=== PATIENT | female | born 1970 | race Caucasian/White ===

== ENCOUNTER 2020-12-14 17:34 | Emergency (ER) | payer OTHER, SELFPAY ==
[2020-12-14 17:40] VITALS: BP 183/87; PULSE 63; RESP 16; TEMP 36.9; O2SAT 100
--- NOTE | 2020-12-14 18:10 | ED.SKABFB ---
HPI - Skin/Abscess/Foreign Bdy General Chief complaint: Skin/Abscess/Foreign Body Stated complaint: wound on thigh Time Seen by Provider: 12/14/20 18:10 Source: patient and RN notes reviewed Mode of arrival: ambulatory Limitations: no limitations History of Present Illness HPI narrative: Janet is a 50-year-old female patient who ambulated into the [facility]. Patient states she was bit on Sunday on her left leg. Patient states it was a piercing pain and she has had bruising to the area ever since. Patient has been treating with cold compresses at home. MD complaint: insect bite/sting Related Data Home Medications Medication Instructions Recorded Confirmed eletriptan 40 mg tablet See Rx Instructions PO .COMPLEX 09/22/19 09/06/20 propranolol 120 mg capsule,24 120 mg PO DAILY 09/06/20 09/06/20 hr,extended release fexofenadine 180 mg tablet 180 mg PO DAILY 12/01/20 riboflavin (vitamin B2) 100 mg mg PO 12/01/20 capsule,extended release rimegepant 75 mg disintegrating 75 mg PO .qod tablet 12/01/20 tablet Allergies Allergy/AdvReac Type Severity Reaction Status Date / Time aspirin Allergy Severe Swelling Verified 12/01/20 11:51 shellfish derived Allergy Severe Unknown Verified 12/01/20 11:51 nut - unspecified Allergy Unknown Verified 12/14/20 18:00 Review of Systems Review of Systems: CONSTITUTIONAL: Denies body aches, fever, chills, or sweats. EYES: Denies visual changes, redness, or discharge. ENT: Denies rhinorrhea, congestion, sore throat, or otalgia. CARDIOVASCULAR: Denies chest pain, palpitations, or edema. RESPIRATORY: Denies cough or dyspnea. GASTROINTESTINAL: Denies abdominal pain, nausea, vomiting, or diarrhea. GENITOURINARY: Denies dysuria or hematuria. SKIN: Denies rash, itching, + bite left leg MUSCULOSKELETAL: Denies back pain, joint pain, or myalgia. NEUROLOGIC: Denies headache, numbness, tingling, or weakness. PSYCH: Denies depression or anxiety. All systems reviewed & are unremarkable except as noted in HPI and below PMFSH Past Medical History Medical History Migraine headache Family History Family History Mother Hypertension Father Patient's father is in good health Sibling Patient's sister is in good health Social History Social History Smoking status: Never smoker Second hand tobacco smoke exposure: No Alcohol intake: current Drinks per week: 5 Substance use: current Substance use type: marijuana Other substance usage details: edibles; once monthly Comments At time of signature, I have reviewed and agree with nursing past medical, surgical, social and family history unless otherwise noted. Please see nursing chart for further information. There is no relevant family history pertinent to the presenting complaint Exam Narrative: GENERAL: Well-appearing, well-nourished, and in no acute distress. HEAD: Normocephalic, atraumatic. EYES: EOMI. No redness or drainage. Conjunctivae normal. ENT: Mucous membranes pink and moist. Nares clear. No rhinorrhea. TMs normal bilaterally. Throat normal. Uvula midline. NECK: Normal AROM. Supple. No lymphadenopathy. CHEST: No respiratory distress. Clear to auscultation. HEART: Regular rate and rhythm. No murmur appreciated. Normal peripheral pulses. ABDOMEN: Soft, nontender, nondistended, normal active bowel sounds. MUSCULOSKELETAL: No bony tenderness. EXTREMITIES: Normal range of motion. No edema. SKIN: Warm, dry, no rash. Capillary refill normal. Normal skin turgor. 6 x 7cm erythemic bruised area, warm, intact skin without drainage; NEURO: No focal deficits. Alert and oriented x3. Gait steady. PSYCH: Normal affect. No signs of depression or anxiety. Course Vital Signs Vital signs: Vital Signs Temperature 36.9 C 12/14/20 17:40 P
[2020-12-14] MEDS: TETANUS,DIPHTHERIA,AC PERTUSSIS ADULT (0.5 ML) BOOSTRIX IM (18:32)
== END 2020-12-14 18:55 | disposition home or self-care (01) ==
PROVIDERS: Emergency Provider Nurse Practitioner Family; PCP Family Medicine
DX: S70.362A Insect bite (nonvenomous), left thigh, initial encounter (principal); L03.116 Cellulitis of left lower limb; W57.XXXA Bitten or stung by nonvenomous insect and other nonvenomous arthropods, initial encounter; Z23 Encounter for immunization
CPT/HCPCS: 90471; 90715; 99213; G0463

== ENCOUNTER 2021-11-11 21:29 | Emergency (ER) | payer OTHER, SELFPAY ==
[2021-11-11] VITALS (17 sets, daily range): BP systolic 135–214; BP diastolic 75–112; PULSE 72–89; RESP 13–28; TEMP 36.7; O2SAT 98–100
--- NOTE | ~2021-11-11 | XR_ITS ---
EXAMINATION: XR chest 2V 11/11/2021 22:31 INDICATION: Chest pain PROCEDURE: 2 view chest COMPARISON: 04/16/2013 FINDINGS: The lungs are clear. The cardiomediastinal silhouette is within normal limits. There are no pleural effusions. There is no pneumothorax suspected. IMPRESSION: 1: NO ACUTE CARDIOPULMONARY DISEASE. Reviewed, dictated and finalized at location A.
--- NOTE | 2021-11-11 21:41 | ECG_ITS ---
Measurements Intervals [place] Rate: 78 P: 36 CO: 135 QRS: 80 QRSD: 77 T: 45 QT: 372 QTc: 425 Interpretive Statements SINUS RHYTHM NORMAL ECG NO PREVIOUS ECG AVAILABLE FOR COMPARISON Electronically Signed On 11-12-2021 7:53:52 CDT by Martin Butler M.D.
[2021-11-11] MEDS: cloNIDine HCL 0.1 MG TABLET 0.2 MG PO (21:59)
[2021-11-11 22:01] LABS: Basophils Absolute Auto 0.1 K/mm3 (0.0-0.1); Basophils Percent Auto 0.6 % (0.2-1.2); Eosinophils Absolute Auto 0.2 K/mm3 (0-0.3); Eosinophils Percent Auto 2.8 % (0-4.4); Hematocrit 36.9 % (37.0-47.0); Hemoglobin 12.4 g/dL (12.0-15.0); Immature Granulocyte Absolute 0.01 K/mm3 (0.00-0.031); Immature Granulocyte Percent A 0.1 % (0-0.5); Lymphocytes Absolute Auto 3.47 K/mm3 (0.9-3.2); Lymphocytes Percent Auto 44.2 % (18.3-44.2); Mean Corpuscular HGB Conc 33.6 g/dl (32-36); Mean Corpuscular Hemoglobin 29.2 pg (26-34); Mean Corpuscular Volume 86.8 fl (80-100); Mean Platelet Volume 9.6 fl (7.4-10.4); Monocytes Absolute Auto 0.7 K/mm3 (0.1-0.6); Monocytes Percent Auto 8.5 % (2.6-8.5); Neutrophils Absolute Auto 3.4 K/mm3 (1.3-6.7); Neutrophils Percent Auto 43.8 % (45.5-73.1); Platelet Count Result 316 k/mm3 (150-375); Red Blood Count 4.25 M/mm3 (4.2-5.4); Red Cell Distribution Width 12.2 % (11.5-14.5); White Blood Count 7.9 K/mm3 (4.5-10.0)
[2021-11-11 22:10] LABS: Prothrombin Time 12.9 Seconds (11.1-14.7)
[2021-11-11 22:11] LABS: Partial Thromboplastin Time 30.6 SECONDS (22.3-36.8)
[2021-11-11 22:24] LABS: Alanine Aminotransferase 15 U/L (6-35); Albumin Level 3.7 g/dL (3.5-5.1); Alkaline Phosphatase 64 U/L (38-126); Anion Gap 8 mmol/L (8-16); Aspartate Amino Transferase 17 U/L (14-36); Bilirubin,Total 0.5 mg/dL (0.2-1.3); Blood Urea Nitrogen 13 mg/dL (7-17); Calcium 8.6 mg/dL (8.4-10.2); Carbon Dioxide 23 mmol/L (22-30); Chloride 106 mmol/L (98-107); Estimated CRCL calculation 73 ml/min; Estimated Glomerular Filt Rate > 60; Glucose 106 mg/dL (65-110); Lipase 147 U/L (23-300); Potassium 3.5 mmol/L (3.4-5.0); Sodium 137 mmol/L (137-145)
[2021-11-11 22:32] LABS: Troponin I < 0.012 ng/mL (0.000-0.034)
[2021-11-11] MEDS: MORPHINE SULFATE (*CRX) 4 MG/ML INJ IV PUSH (23:26)
[2021-11-11] MEDS: ONDANSETRON INJ 4 MG/2 ML VIAL IV PUSH (23:26)
[2021-11-12] VITALS: PULSE 70; RESP 14; O2SAT 100
--- NOTE | 2021-11-12 | ED.CHESTPAIN ---
HPI - Chest Pain General Chief Complaint: Chest Pain Stated Complaint: high blood pressure with migraine Time Seen by Provider: 11/11/21 21:49 Source: patient and family Mode of arrival: wheelchair Limitations: no limitations History of Present Illness HPI narrative: 51-year-old with a history of migraines, hypertension here with complaints of having headache and chest pain. Patient states that she has been dealing with migraine headaches for past 1 week. She states that she has seen her primary doctor did receive an injection in the office which helped her with the pain and she states that pain started all over again this afternoon and now has chest pain as well. She states that she was started on labetalol for high blood pressure and she took 1 dose this evening. She denies any shortness of breath. No history of fever or chills. MD complaint: chest pain Onset (ago): day(s) Pain location: posterior Pain radiation: none Quality: aching Relieving factors: nothing Treatment prior to arrival: none Risk Factors Coronary artery disease risk factors: none Thoracic aortic dissection risk factors: none Related Data Home Medications Medication Instructions Recorded Confirmed eletriptan 40 mg tablet (Relpax) See Rx Instructions PO .COMPLEX 09/22/19 11/09/21 fexofenadine 180 mg tablet 180 mg PO DAILY 12/01/20 11/09/21 (Lorena Allergy) riboflavin (vitamin B2) 100 mg mg PO 12/01/20 11/09/21 capsule,extended release Allergies Allergy/AdvReac Type Severity Reaction Status Date / Time aspirin Allergy Severe Swelling Verified 11/09/21 14:55 shellfish derived Allergy Severe Unknown Verified 11/09/21 14:55 nut - unspecified Allergy Unknown Verified 11/09/21 14:55 Review of Systems Review of Systems: All systems reviewed & are unremarkable except as noted in HPI and below Constitutional: Constitutional: Reports no additional constitutional complaints Eyes: Eyes: Reports no additional eye complaints ENT: Reports system reviewed and no additional complaints, except as documented Cardiovascular: Cardiovascular: Reports as per HPI Respiratory: Respiratory: Reports no additional respiratory complaints Gastrointestinal: Gastrointestinal: Reports no additional gastrointestinal complaints Musculoskeletal: Musculoskeletal: Reports no additional musculoskeletal complaints Neurologic: Reports system reviewed and no additional complaints, except as documented [facility] Past Medical History Medical History Migraine headache Family History Family History Mother Hypertension Father Patient's father is in good health Sibling Patient's sister is in good health Social History Social History (Updated 11/09/21 @ 14:58 by Sandra Fitzpatrick [facility]) Smoking status: Never smoker Second hand tobacco smoke exposure: No Alcohol intake: former Substance use: never Gender identity (if verbalized by the patient): Female Spiritual care concerns: No Agree to blood products: Yes Exam Narrative: GENERAL: Well-appearing, well-nourished, and in no acute distress, anxious HEAD: Normocephalic, atraumatic. EYES: PERRLA and EOM. NECK: Supple. CHEST: Clear to auscultation. No respiratory distress. HEART: Regular rate and rhythm. No murmur heard. Normal peripheral pulses. ABDOMEN: Soft, nontender, nondistended, normal active bowel sounds. EXTREMITIES: Normal range of motion. No edema. SKIN: Warm, dry, no rash. NEURO: No focal deficits. Alert and oriented x3. PSYCH: Normal mood and affect. Course Course Emergency Course: Patient on examination appeared to be anxious and her blood pressure was 214/112, her EKG was unremarkable we will give her clonidine 0.2 mg p.o. and do cardiac work-up. Informed patient about her lab work, EKG and chest x-ray findings. She is feeling much better her present b
[2021-11-12 00:01] VITALS: BP 119/75; PULSE 76; RESP 15; O2SAT 100
[2021-11-12 00:23] VITALS: BP 107/73; PULSE 73; RESP 16; O2SAT 100
== END 2021-11-12 00:23 | disposition home or self-care (01) ==
PROVIDERS: General Practice; Emergency Provider Family Medicine; PCP Family Medicine
DX: G43.909 Migraine, unspecified, not intractable, without status migrainosus (principal); I10 Essential (primary) hypertension; R07.89 Other chest pain
CPT/HCPCS: 36415; 71046; 80053; 83690; 84484; 85025; 85610; 85730; 93005; 96374; 96375; 99284; A9270; J2270; J2405

== ENCOUNTER 2022-03-09 08:17 | Outpatient (CLI) | payer OTHER, SELFPAY ==
--- NOTE | 2022-03-09 08:21 | EST_ITS ---
Patient Info Name: Little Miramontes Age: 52 years : 1970 Gender: Female Ht: 61 in Wt: 150 lbs BSA: 1.73 m2 HR: 69 bpm BP: 153 / 94 mmHg Heart Rhythm: Sinus Rhythm Exam Date: 03/09/2022 9:43 AM Exam Location: [facility] Stress Patient Status: Outpatient Admit Date: 03/09/2022 Staff Ordering Physician: More Betancourt MD Attending Provider: More Betancourt MD Exercise Technologist: Nelida Ellison CT Exercise Physician: Omar Rodas DO Exam Type: CA stress test treadmill Study Info Indications I10 - Essential (primary) hypertension R07.9 - Chest pain, unspecified A treadmill exercise stress test was performed. Summary 1. 1. Negative Ankur exercise stress test for ischemic ST changes by ECG criteria. 2. 2. Good functional capacity, achieving 12 METs of workload. 3. 3. Baseline hypertension. 4. 4. Appropriate HR response to exercise. 5. 5. Appropriate HR recovery at 1 minute post exercise. 6. 6. No imaging with stress testing. 7. 7. Patient informed of the above results. Protocol: Ankur Stress ECG Details Stage: REST Duration (min): 0 min : 59 sec Speed (mph): 0.0 Grade (%): 0 HR (bpm): 71 SBP (mmHg): 153 DBP (mmHg): 94 METS: --- Stage: REST Duration (min): 17 min : 5 sec Speed (mph): 0.0 Grade (%): 0 HR (bpm): 70 SBP (mmHg): 153 DBP (mmHg): 94 METS: --- Stage: STAGE 1 Duration (min): 1 min : 0 sec Speed (mph): 1.7 Grade (%): 10 HR (bpm): 100 SBP (mmHg): 153 DBP (mmHg): 94 METS: --- Stage: STAGE 1 Duration (min): 2 min : 0 sec Speed (mph): 1.7 Grade (%): 10 HR (bpm): 108 SBP (mmHg): 153 DBP (mmHg): 94 METS: --- Stage: STAGE 1 Duration (min): 3 min : 0 sec Speed (mph): 1.7 Grade (%): 10 HR (bpm): 108 SBP (mmHg): 146 DBP (mmHg): 82 METS: --- Stage: STAGE 2 Duration (min): 1 min : 0 sec Speed (mph): 2.5 Grade (%): 12 HR (bpm): 118 SBP (mmHg): 146 DBP (mmHg): 82 METS: --- Stage: STAGE 2 Duration (min): 2 min : 0 sec Speed (mph): 2.5 Grade (%): 12 HR (bpm): 121 SBP (mmHg): 118 DBP (mmHg): 78 METS: --- Stage: STAGE 2 Duration (min): 3 min : 0 sec Speed (mph): 2.5 Grade (%): 12 HR (bpm): 124 SBP (mmHg): 118 DBP (mmHg): 78 METS: --- Stage: STAGE 3 Duration (min): 1 min : 0 sec Speed (mph): 3.4 Grade (%): 14 HR (bpm): 134 SBP (mmHg): 220 DBP (mmHg): 88 METS: --- Stage: STAGE 3 Duration (min): 2 min : 0 sec Speed (mph): 3.4 Grade (%): 14 HR (bpm): 147 SBP (mmHg): 220 DBP (mmHg): 88 METS: --- Stage: STAGE 3 Duration (min): 3 min : 0 sec Speed (mph): 3.4 Grade (%): 14 HR (bpm): 151 SBP (mmHg): 220 DBP (mmHg): 88 METS: --- Stage: STAGE 4 Duration (min): 1 min : 0 sec Speed (mph): 4.2 Grade (%): 16 HR (bpm): 166 SBP (mmHg):
--- NOTE | 2022-03-09 08:21 | ECHO_ITS ---
Patient Info Name: Little Miramontes Age: 52 years : 1970 Gender: Female Ht: 61 in Wt: 150 lbs BSA: 1.73 m2 HR: 68 bpm BP: 141 / 93 mmHg Technical Quality: Good Exam Date: 03/09/2022 8:31 AM Exam Location: [facility] Patient Status: Outpatient Admit Date: 03/09/2022 Staff Ordering Physician: More Betancourt MD Cold Storage Superintendent: Nandini Alexander RDCS Attending Provider: More Betancourt MD Referring Physician: Serafin FLORES; Exam Type: CA echo doppler color flow Study Info Indications R07.89 - Other chest pain Complete two-dimensional, color flow and Doppler transthoracic echocardiogram is performed. Summary 1. Complete two-dimensional, color flow and Doppler transthoracic echocardiogram is performed. 2. Left ventricular chamber dimension is normal. 3. Left ventricular systolic function is normal, estimated at 65-70%. 4. The left ventricular diastolic function is normal. 5. E/e' 8 is minimally elevated. 6. Global longitudinal strain is normal at -19.4%. 7. There is trace mitral valve regurgitation. 8. There is trace tricuspid valve regurgitation. 9. No pulmonary hypertension, estimated pulmonary arterial systolic pressure is 26 mmHg. Left Ventricle E/e' 8 is minimally elevated. Global longitudinal strain is normal at -19.4%. Left ventricular chamber dimension is normal. Left ventricular systolic function is normal, estimated at 65-70%. The left ventricular diastolic function is normal. Right Ventricle Right ventricular systolic function is normal and with normal TAPSE 2.6 cm. Right ventricular chamber dimension is normal. Left Atria Left atrial chamber dimension is normal. Right Atria Right atrial chamber dimension is normal. Aortic Valve The aortic valve is trileaflet. There is no aortic valve stenosis. There is no aortic valve regurgitation. Pulmonic Valve There is no pulmonic regurgitation. Mitral Valve There is no mitral valve stenosis. There is trace mitral valve regurgitation. Tricuspid Valve There is trace tricuspid valve regurgitation. No pulmonary hypertension, estimated pulmonary arterial systolic pressure is 26 mmHg. Pericardium/Pleural There is no pericardial effusion. Inferior Vena Cava Normal inferior vena cava with >50% collapse upon inspiration consistent with normal right atrial pressure, 5 mmHg. Aorta The aortic root size at the sinus of Valsalva is normal. Left Ventricular Outflow Tract Name Value Normal LVOT 2D LVOT Diameter 2.0 cm LVOT Doppler LVOT Peak Gradient 5 mmHg LVOT Mean Gradient 3 mmHg LVOT VTI 25 cm LVOT VTI/AV VTI Ratio 0.9 LVOT Stroke Volume 76 ml LVOT CO 4.8 l/min LVOT CI 2.8 l/min/m2 Pulmonic Valve Name Value Normal RVOT Doppler
== END 2022-03-09 08:18 | disposition home or self-care (01) ==
PROVIDERS: PCP Family Medicine; Visit Provider Family Medicine
DX: R07.89 Other chest pain (principal); I10 Essential (primary) hypertension; Z86.79 Personal history of other diseases of the circulatory system
CPT/HCPCS: 93017; 93306

== ENCOUNTER 2022-06-30 08:44 | Outpatient (CLI) | payer OTHER, SELFPAY ==
--- NOTE | ~2022-06-30 | MMUS_ITS ---
EXAMINATION: MM diagnostic jcarlos BI w neymar, US breast BI limited HISTORY: Palpable lump of the upper left breast TECHNIQUE: Craniocaudal, mediolateral, and mediolateral oblique 3-D tomosynthesis images of the coy ts were performed and synthetic 2-D images were generated. CAD analysis was submitted and interpreted . High resolution limited bilateral breast ultrasound was performed. COMPARISON: No prior mammogram is currently available for comparison. BREAST PARENCHYMAL COMPOSITION: The breasts are heterogeneously dense, which may obscure small masses . FINDINGS: MAMMOGRAPHIC FINDINGS: Right breast: There is a 1.8 cm oval, obscured, equal density mass in the middle third of the slightl y upper breast at the 12:00 location 5 cm from the nipple. No suspicious calcification or architectur al distortion are identified. Left breast: There is a 1.8 cm oval, obscured, equal density mass in the middle third of the upper br east at the 12:00 location 4.5 cm from the nipple corresponding to the palpable abnormality. ULTRASOUND: Right breast: There is a 2.1 cm cyst corresponding to the mammographic finding in question. There is a 9 mm x 4 mm oval, circumscribed, parallel, hypoechoic mass with no posterior features or internal v ascularity at the 12:00 location near the nipple. Left breast: There is a 1.8 cm cyst corresponding to the mammographic finding in question. No suspici ous cystic or solid mass is identified. IMPRESSION: 1. Probably benign sonographically detected right breast mass near the nipple at the 12:00 location. Recommend six month follow-up targeted right breast ultrasound. 2. Bilateral breast cysts, one of which corresponds to the palpable lump of the left breast. BI-RADS category 3, probably benign findings. Reviewed, dictated and finalized at location A. IMPRESSION: 1. Probably benign sonographically detected right breast mass near the nipple a t the 12:00 location. Recommend six month follow-up targeted right breast ultra sound. 2. Bilateral breast cysts, one of which corresponds to the palpable lump of the left breast. BI-RADS category 3, probably benign findings.
== END 2022-06-30 08:45 | disposition home or self-care (01) ==
LOC: CHSIMG 08:46
PROVIDERS: PCP Family Medicine; Visit Provider Obstetrics & Gynecology
DX: R92.8 Other abnormal and inconclusive findings on diagnostic imaging of breast (principal)
CPT/HCPCS: 76642; 77062; 77066; G0279

== ENCOUNTER 2022-09-15 07:35 | Day surgery (SDC) | payer OTHER, SELFPAY ==
[2022-09-15] VITALS (35 sets, daily range): BP systolic 108–161; BP diastolic 68–102; PULSE 57–100; RESP 13–29; TEMP 36.1–36.4; O2SAT 90–100
--- NOTE | ~2022-09-15 | CT_ITS ---
EXAMINATION: CT abdomen pelvis w con DATE: 09/15/2022 08:41 INDICATION: Right upper quadrant abdominal pain. Nausea. TECHNIQUE: Computed tomography (CT) of the abdomen and pelvis was performed with 100 mL Omnipaque 350 intravenous contrast. Automated exposure control and iterative reconstruction technique were employe d. The dose-length product was 365.43 mGy-cm. COMPARISON: Breast ultrasound 06/30/2022 FINDINGS: The visualized portions of the lung bases are clear without pneumonia or pleural effusion. The heart size is normal. No pericardial effusion. There is a 17 mm cyst in right breast. There is a 3.6 cm cyst in the liver. There are gallstones in the gallbladder, which is distended. The spleen, pa ncreas, adrenal glands, and kidneys are normal. There are no dilated loops of bowel. There is an 11 m m uterine fibroid. The endometrial complex is thickened at 3.2 cm. There are no dilated loops of lissa l. The appendix is normal. There are no pathologically enlarged lymph nodes. There is no ascites. There is mild lumbar spondylosis. IMPRESSION: 1. Distended gallbladder with gallstones suspicious for acute cholecystitis. 2. Thickened endometrial complex suspicious for endometrial hyperplasia or polyp. Reviewed, dictated and finalized at location A. IMPRESSION: 1. Distended gallbladder with gallstones suspicious for acute cholecystitis. 2. Thickened endometrial complex suspicious for endometrial hyperplasia or devante yp.
--- NOTE | ~2022-09-15 | US_ITS ---
EXAMINATION: US right upper quadrant DATE: 09/15/2022 09:24 INDICATION: Right upper quadrant abdominal pain. TECHNIQUE: Multiple grayscale and Doppler ultrasound images of the abdomen were obtained. COMPARISON: CT abdomen and pelvis 09/15/2022 FINDINGS: The visualized portions of the head of the pancreas are normal. There is a 3.6 cm cyst in t he liver. No liver surface nodularity. There is normal flow in main portal vein. The gallbladder is d istended and contains gallstones. Gallbladder wall thickening is noted. There is a positive sonograph ic Wilcox sign. The common duct is normal and measures 3 mm. IMPRESSION: 1. Acute cholecystitis. Reviewed, dictated and finalized at location A. IMPRESSION: 1. Acute cholecystitis.
--- NOTE | 2022-09-15 07:48 | ED.ABDPAIN ---
HPI - Abdominal Pain General Chief Complaint: Abdominal Pain Stated Complaint: abd pain Time Seen by Provider: 09/15/22 07:42 History of Present Illness HPI narrative: This is a 52-year-old female, with past history of hypertension, who presents to the emergency department complaining of abdominal pain. The patient states her pain began approximately 5 hours. It is described as sharp, present in the epigastrium and the right upper quadrant radiating towards the back. She denies recent trauma or other injuries. She complains of some associated fevers and chills. She also complains of nausea and has vomited once without blood. Related Data Home Medications Medication Instructions Recorded Confirmed fexofenadine 60 mg-pseudoephedrine 1 tablet PO Q12H 06/22/22 09/15/22 ER 120 mg tablet,ext.release,12 hr (Lorena-D 12 Hour) mecobalamin (vitamin B12) 1,000 1,000 mcg PO DAILY 06/22/22 09/15/22 mcg lozenges norethindrone (contraceptive) 0.35 0.35 mg PO DAILY 07/24/22 09/15/22 mg tablet (Jessica) fluticasone furoate 50 50 mcg inhalation BID 09/15/22 09/15/22 mcg/actuation blister powder for inhalation Allergies Allergy/AdvReac Type Severity Reaction Status Date / Time aspirin Allergy Severe Swelling Verified 09/15/22 13:15 Review of Systems Review of Systems: CONSTITUTIONAL: Denies fever, chills, or sweats. CARDIOVASCULAR: Denies chest pain, palpitations, or edema. RESPIRATORY: Denies cough or dyspnea. GASTROINTESTINAL: Epigastric and right upper quadrant abdominal pain, nausea and vomiting, able to pass gas denies diarrhea. GENITOURINARY: Denies dysuria or hematuria. SKIN: Denies rash or itching. MUSCULOSKELETAL: Denies back pain, joint pain, or myalgia. NEUROLOGIC: Denies headache, numbness, dizziness, or weakness. PSYCHIATRIC: Denies anxiety or depression. [facility] Past Medical History Medical History Allergies Essential hypertension H/O mitral valve prolapse Migraine headache Surgical History Surgical History S/P nasal surgery [place] teeth removed Family History Family History Mother Hypertension Father Patient's father is in good health Alcoholism Sibling Patient's sister is in good health Asthma Other Liver cancer Social History Social History Smoking status: Never smoker Second hand tobacco smoke exposure: No Alcohol intake: current Substance use: current Lack of Transportation: No Lack of Food: Never True Current Housing: I Have Housing Concerned About Future Housing: No Difficulty Paying Gas/Electric Bills: No Difficulty Paying for Meds: No Currently Unemployed: No Education: Master's Degree or Higher Difficulty w/ Childcare or Family Care: No Living arrangements: with family Gender identity (if verbalized by the patient): Female Spiritual care concerns: No Agree to blood products: Yes Exam Narrative: GENERAL: Well-developed, well-nourished, in moderate distress due to pain HEAD: Normocephalic, atraumatic. EYES: PERRLA and EOMI. ENT: Nares clear, no rhinorrhea or epistaxis. Mucous membranes moist. Oropharynx without tonsillar hypertrophy exudate or other lesions. CHEST: Clear to auscultation. No respiratory distress. No wheezes rales or rhonchi HEART: Regular rate and rhythm. No murmur heard. Normal peripheral pulses. ABDOMEN: Soft, tender to palpation in the epigastrium and right upper quadrant without rebound though possibly guarding, nondistended, normal active bowel sounds. EXTREMITIES: Normal range of motion. No edema. SKIN: Warm, dry, no rash. NEURO: No focal deficits. Alert and oriented x3. PSYCH: Normal mood and affect. Course Course Emergency Course: 10:50 - CT abdomen pelv
[2022-09-15] MEDS: MORPHINE SULFATE (*CRX) 4 MG/ML INJ IV PUSH ×2 (07:59→09:59)
[2022-09-15] MEDS: ONDANSETRON INJ 4 MG/2 ML VIAL IV PUSH ×2 (07:59→15:56)
[2022-09-15] MEDS: SODIUM CHLORIDE 0.9% IV 2,000 ML 999 ML IV CONT (07:59)
[2022-09-15 08:06] LABS: Basophils Percent Auto 0.7 % (0.2-1.2); Eosinophils Absolute Auto 0.1 K/mm3 (0-0.3); Eosinophils Percent Auto 1.3 % (0-4.4); Hematocrit 40.8 % (37.0-47.0); Hemoglobin 14.3 g/dL (12.0-15.0); Immature Granulocyte Absolute 0.03 K/mm3 (0.00-0.031); Immature Granulocyte Percent A 0.5 % (0-0.5); Lymphocytes Absolute Auto 2.62 K/mm3 (0.9-3.2); Lymphocytes Percent Auto 43.2 % (18.3-44.2); Mean Corpuscular Hemoglobin 29.3 pg (26-34); Mean Corpuscular Volume 83.6 fl (80-100); Mean Platelet Volume 9.4 fl (7.4-10.4); Monocytes Absolute Auto 0.5 K/mm3 (0.1-0.6); Monocytes Percent Auto 8.2 % (2.6-8.5); Neutrophils Absolute Auto 2.8 K/mm3 (1.3-6.7); Neutrophils Percent Auto 46.1 % (45.5-73.1); Platelet Count Result 364 k/mm3 (150-375); Red Blood Count 4.88 M/mm3 (4.2-5.4); Red Cell Distribution Width 12.2 % (11.5-14.5); White Blood Count 6.1 K/mm3 (4.5-10.0)
[2022-09-15 08:22] LABS: Alanine Aminotransferase 27 U/L (6-35); Albumin Level 4.8 g/dL (3.5-5.1); Alkaline Phosphatase 94 U/L (38-126); Anion Gap 10 mmol/L (8-16); Aspartate Amino Transferase 26 U/L (14-36); Bilirubin,Total 1.5 mg/dL (0.2-1.3); Blood Urea Nitrogen 14 mg/dL (7-17); Calcium 9.9 mg/dL (8.4-10.2); Carbon Dioxide 23 mmol/L (22-30); Chloride 104 mmol/L (98-107); Estimated CRCL calculation 65 ml/min; Estimated Glomerular Filt Rate > 60; Glucose 123 mg/dL (65-110); Lactic Acid Reflex 1.9 mmol/L (0.7-2.0); Lipase 96 U/L (23-300); Potassium 3.1 mmol/L (3.4-5.0); Sodium 137 mmol/L (137-145)
[2022-09-15 08:54] LABS: Amorphous Sediment Urine Present; Appearance Urine Cloudy (Clear); Bacteria Urine None Seen /hpf; Bilirubin Urine Negative (Negative); Blood Urine Negative (Negative); Color Urine Yellow (Yellow); Glucose Urine UA Negative (Negative); Ketones Urine 1+ mg/dL (Negative); Leukocyte Esterase Ur 1+ LEU/UL (Negative); Need Manual Microscopic Reviewed; Nitrate Urine Negative (Negative); Non Pathogenic Casts 0-2; Protein Urine Negative (Negative); RBC Urine 0-2 /hpf (0-2); Specific Grav Ur 1.018 (1.001-1.035); Squamous Epithelial Cell Urine None seen /hpf (Few); WBC Urine 0-5 /hpf
[2022-09-15 09:02] LABS: Add Urine Microscopic? YES
[2022-09-15] MEDS: PIPERACILLN/TAZ 3.375GM/NS50ML 3.375 GM/50 ML BAG IVPB (10:00)
--- NOTE | 2022-09-15 10:37 | PM.IMHP ---
H&P: HPI History of Present Illness Date/Time: 09/15/22 10:37 Chief Complaint: Acute cholecystitis Narrative: The patient is a 52-year-old female presenting to the emergency department complaining of severe upper abdominal pain. The patient reports the pain is mostly in her epigastrium and right upper quadrant radiating to her back. The patient reports that the pain started last night and has been unrelenting. The patient reports that she had fried chicken for dinner and pain started soon afterwards. The patient reports associated nausea, anorexia, bloating. The patient reports she has had similar episodes over the last year, however nothing this severe or long-lasting. The patient reports that the pain seems to be brought on by fried, fatty foods. Review of Systems Review of Systems: All systems reviewed & are unremarkable except as noted in HPI and below PMFSH Past Medical History Medical History Allergies Essential hypertension H/O mitral valve prolapse Migraine headache Surgical History Surgical History S/P nasal surgery [place] teeth removed Family History Family History Mother Hypertension Father Patient's father is in good health Alcoholism Sibling Patient's sister is in good health Asthma Other Liver cancer Social History Social History Smoking status: Never smoker Second hand tobacco smoke exposure: No Alcohol intake: current Substance use: current Lack of Transportation: No Lack of Food: Never True Current Housing: I Have Housing Concerned About Future Housing: No Difficulty Paying Gas/Electric Bills: No Difficulty Paying for Meds: No Currently Unemployed: No Education: Master's Degree or Higher Difficulty w/ Childcare or Family Care: No Living arrangements: with family Gender identity (if verbalized by the patient): Female Spiritual care concerns: No Agree to blood products: Yes Meds Home Medications and Allergies Home Medications Medication Instructions Recorded Confirmed Type eletriptan 40 mg tablet (Relpax) See Rx Instructions PO .COMPLEX 12/23/21 07/24/22 Rx #90 tabs azelastine 137 mcg-fluticasone 50 spray intranasal 06/22/22 07/24/22 History mcg spray,susp-NaCl 0.9% spray nasal fexofenadine 60 mg-pseudoephedrine 1 tablet PO Q12H PRN 06/22/22 07/24/22 History ER 120 mg tablet,ext.release,12 hr (Lorena-D 12 Hour) mecobalamin (vitamin B12) 1,000 1,000 mcg PO DAILY 06/22/22 07/24/22 History mcg lozenges labetalol 100 mg tablet See Rx Instructions .Route 06/30/22 07/24/22 Rx .COMPLEX #180 tabs amlodipine 5 mg tablet 5 mg PO DAILY #90 tabs 07/24/22 Rx buspirone 7.5 mg tablet 7.5 mg PO BID #30 tabs 07/24/22 07/24/22 Rx hydrochlorothiazide 50 mg tablet 50 mg PO DAILY #90 tabs 07/24/22 07/24/22 Rx norethindrone (contraceptive) 0.35 0.35 mg PO DAILY 07/24/22 07/24/22 History mg tablet (Jessica) pantoprazole 40 mg tablet,delayed 40 mg PO QHS #90 tabs 07/24/22 07/24/22 Rx release potassium chloride 10 mEq See Rx Instructions .Route 07/24/22 07/24/22 Rx capsule,extended release .COMPLEX #90 caps Allergies Allergy/AdvReac Type Severity Reaction Status Date / Time aspirin Allergy Severe Swelling Verified 07/24/22 09:25 shellfish derived Allergy Severe Unknown Verified 07/24/22 09:25 nut - unspecified Allergy Unknown Verified 07/24/22 09:25 Vital Signs Vital Signs - 24 hr 09/15/22 07:43 Temperature 36.4 C L Pulse Rate 69 Respiratory Rate 28 H Blood Pressure 158/90 H Pulse Oximetry 100 Oxygen Delivery Room Air Exam Const: General: cooperative, alert, awake, Physically active, acute distress mild, uncomfortable and average body habitus HENMT: Head: normal to inspection, No p
--- NOTE | 2022-09-15 10:41 | WPDHPUPDATE1 ---
History and Physical Update Update Date/Time: 09/15/22 10:41 History and Physical has been reviewed, including an updated exam of the patient. There are NO changes in the patient's condition. Risks, benefits, and alternatives have been discussed and questions answered. Patient agrees to proceed with procedure.
[2022-09-15] MEDS: HYDROmorphone HCL INJ (*CRX) 1 MG/ML SYR IV PUSH (12:11)
--- NOTE | 2022-09-15 12:15 | PC.NURSE ---
made ERP aware of pain medication needed at 1207
[2022-09-15] MEDS: LACTATED RINGERS 1,000 ML 30 ML IV CONT ×2 (13:05→16:37)
--- NOTE | 2022-09-15 13:08 | PC.NURSE ---
verbal report given to Pre op team.
--- NOTE | 2022-09-15 14:27 | WPDANESEPPF ---
Anes - Initial Pre Proc Eval Procedure: Operation Date: 09/15/22 15:00 Proposed Procedures p Laparoscopic Cholecystectomy - Cheryl Dhaliwal MD Date/Time: 09/15/22 14:27 Surgeon: Cheryl Dhaliwal MD Pre Op Diagnosis: abd pain Patient Data Age: 52 Gender: F Height: 1.55 m Weight: 68 kg Last Vital Signs Temp 36.1 C L 09/15/22 14:01 Pulse 79 09/15/22 14:01 Resp 16 09/15/22 14:01 BP 145/93 H 09/15/22 14:01 Pulse Ox 100 09/15/22 14:01 O2 Del Method Room Air 09/15/22 14:01 Allergies Allergy/AdvReac Type Severity Reaction Status Date / Time aspirin Allergy Severe Swelling Verified 09/15/22 13:15 Home Medications Medication Instructions Recorded Confirmed Type eletriptan 40 mg tablet (Relpax) See Rx Instructions PO .COMPLEX 12/23/21 09/15/22 Rx #90 tabs fexofenadine 60 mg-pseudoephedrine 1 tablet PO Q12H 06/22/22 09/15/22 History ER 120 mg tablet,ext.release,12 hr (Lorena-D 12 Hour) mecobalamin (vitamin B12) 1,000 1,000 mcg PO DAILY 06/22/22 09/15/22 History mcg lozenges labetalol 100 mg tablet See Rx Instructions .Route 06/30/22 09/15/22 Rx .COMPLEX #180 tabs amlodipine 5 mg tablet 5 mg PO DAILY #90 tabs 07/24/22 09/15/22 Rx hydrochlorothiazide 50 mg tablet 50 mg PO DAILY #90 tabs 07/24/22 09/15/22 Rx norethindrone (contraceptive) 0.35 0.35 mg PO DAILY 07/24/22 09/15/22 History mg tablet (Jessica) potassium chloride 10 mEq See Rx Instructions .Route 07/24/22 09/15/22 Rx capsule,extended release .COMPLEX #90 caps fluticasone furoate 50 50 mcg inhalation BID 09/15/22 09/15/22 History mcg/actuation blister powder for inhalation Laboratory Tests 09/15/22 09/15/22 08:01 08:27 WBC 6.1 K/mm3 (4.5-10.0) RBC 4.88 M/mm3 (4.2-5.4) Hgb 14.3 g/dL (12.0-15.0) Hct 40.8 % (37.0-47.0) MCV 83.6 fl (80-100) MCH 29.3 pg (26-34) MCHC 35.0 g/dl (32-36) RDW 12.2 % (11.5-14.5) Plt Count 364 k/mm3 (150-375) MPV 9.4 fl (7.4-10.4) Immature Gran % (Auto) 0.5 % (0-0.5) Neut % (Auto) 46.1 % (45.5-73.1) Lymph % (Auto) 43.2 % (18.3-44.2) [place] % (Auto) 8.2 % (2.6-8.5) Eos % (Auto) 1.3 % (0-4.4) Baso % (Auto) 0.7 % (0.2-1.2) Lymph # (Auto) 2.62 K/mm3 (0.9-3.2) [place] # (Auto) 0.5 K/mm3 (0.1-0.6) Eos # (Auto) 0.1 K/mm3 (0-0.3) Baso # (Auto) 0.0 K/mm3 (0.0-0.1) Abs Immat Gran (auto) 0.03 K/mm3 (0.00-0.031) Absolute Neuts (auto) 2.8 K/mm3 (1.3-6.7) Absolute Nucleated RBC 0.0 K/mm3 (0.0-0.012) Nucleated RBC % 0.0 % (0.0-0.2) Sodium 137 mmol/L (137-145) Potassium 3.1 L mmol/L (3.4-5.0) Chloride 104 mmol/L (98-107) Carbon Dioxide 23 mmol/L (22-30) Anion Gap 10 mmol/L (8-16) BUN 14 mg/dL (7-17) Creatinine 0.80 mg/dL (0.7-1.0) Estim Creat Clear Calc 65 ml/min Estimated GFR > 60 (59 - ) Glucose 123 H mg/dL (65-110) Lactic Acid 1.9 mmol/L (0.7-2.0) Calcium 9.9 mg/dL (8.4-10.2) Total Bilirubin 1.5 H mg/dL (0.2-1.3) AST 26 U/L (14-36) ALT 27 U/L (6-35) Alkaline Phosphatase 94 U/L (38-126) Total Protein 9.0 H g/dL (6.3-8.2) Albumin 4.8 g/dL (3.5-5.1) Lipase 96 U/L (23-300) Urine Color Yellow (Yellow) Urine Appearance Cloudy H (Clear) Urine pH 8.0 (5.0-9.0) Ur Specific [place] 1.018 (1.001-1.035) Urine Protein Negative mg/dL (Negative) Urine Glucose (UA) Negative mg/dL (Negative) Urine Ketones 1+ H mg/dL (Negative) Ur Blood (Man) Negative (Negative) Urine Nitrate Negative (Negative) Urine Bilirubin Negative (Negative) Urine Urobilinogen 1.0 mg/dL (<2.0) Add Ur Microanalysis Reviewed Leukocyte Es
--- NOTE | 2022-09-15 14:34 | WPDHPUPDATE1 ---
History and Physical Update Update Date/Time: 09/15/22 14:34 History and Physical has been reviewed, including an updated exam of the patient. There are NO changes in the patient's condition. Patient was seen by my partner Dr. Dhaliwal. I discussed that I am available to start the surgery while Dr. Dhaliwal is still finishing office. Patient is agreeable to me proceeding with surgery and Dr. Dhaliwal can arrive when he is done. Risks, benefits, and alternatives have been discussed and questions answered. Patient agrees to proceed with procedure.
[2022-09-15] MEDS: BUPIVACAINE/EPINEPHRINE 0.25% 10 ML VIAL 30 ML INFILTRATE (15:07)
[2022-09-15] MEDS: KETOROLAC 15 MG/ML VIAL (*BKC) IV PUSH (15:21)
--- NOTE | 2022-09-15 15:26 | W.PM.PROC2 ---
Procedure Note - Detailed Date of Procedure 09/15/22 Pre-op Diagnosis Acute calculous cholecystitis Post-op Diagnosis Same (Acute cholecystitis with gallbladder hydrops) Procedure Performed Laparoscopic Cholecystectomy Surgeon Vipin White DO Anesthesia General and Local (0.5% bupivacaine) Indications This is a 52-year-old woman who presented with intermittent right upper quadrant pain over the past year. Last night and this morning the pain became more constant and severe. She presented to the emergency department today and was found have a normal white blood count, but CT showed evidence of a distended gallbladder and cholelithiasis. Gallbladder ultrasound also showed signs of acute cholecystitis with positive sonographic Wilcox sign. Discussions were made with the patient about treatment options and decision was made to proceed laparoscopic cholecystectomy, possible open. Findings Laparoscopic cholecystectomy was performed. The patient's gallbladder appeared to have signs of acute inflammation and was distended. The gallbladder wall was chronically thickened. Gallbladder was aspirated with a laparoscopic aspirating needle and clear mucus bile was aspirated. There did appear to be a stone in the distal neck of the gallbladder or cystic duct. The cystic duct appeared normal in size. No other significant abnormalities were noted. The gallbladder was removed and sent to the lab for pathology. Description of Procedure Procedure as well as risks, benefits, and alternatives were discussed with patient. Written consent was obtained and placed in chart prior to procedure. The patient was brought back to surgical suite. Patient was placed in supine position on operating table. Time-out was done to confirm patient and procedure. Patient was then intubated by the anesthesia department. Abdomen was prepped and draped in sterile fashion using chlorhexidine prep. 0.5% bupivacaine with epinephrine was infiltrated at each site of incision. A 5 millimeter incision was made near the umbilicus, and a 5 millimeter Optiview trocar was advanced through the abdominal layers under direct visualization. Once inside the abdominal cavity, carbon dioxide was insufflated to create a pneumoperitoneum. The camera was inserted and the abdomen was inspected. No immediate abnormalities were identified. The patient was placed in reverse Trendelenburg position and rotated slightly to the left. An 11 millimeter incision was made in the subxiphoid region, and an 11 millimeter trocar was inserted under direct visualization. Two 5 millimeter incisions were made in the right upper quadrant, and two 5 millimeter trocars were inserted under direct visualization. The gallbladder was identified and grasped at the fundus and retracted superiorly. It was then grasped at the infundibulum retracted laterally. Careful dissection around the neck of the gallbladder was performed using blunt dissection with a [place] grasper and hook electrocautery. The cystic duct was identified, and a window was created behind it. The cystic artery was also identified and a window was created behind it. The critical view of safety was identified, visualizing the cystic duct running directly into the neck of the gallbladder, and the cystic artery running directly into the wall of the gallbladder. A 5 millimeter clip recyclable materials collector was then used to place 2 clips proximally and 1 clip distally on both the cystic duct and cystic artery. They were then both transected using endoscopic scissors. Once safely away from the chanelle hepatitis, the gallbladder was dissected free from the liver bed using hook electrocautery. Hemostasis was achieved along the way. The gallbladder was removed completely and then removed through the subxiphoid port. The liver bed was then inspected. Hemostasis appeared adequate, and our clips appeared secure. The area was gently irrigated with sterile saline. No other abnormalities were
== END 2022-09-15 17:56 | disposition home or self-care (01) ==
LOC: ANHED 10:31 → ANHSURGERY 10:58
PROVIDERS: Surgery; Emergency Provider Preventive Medicine Aerospace Medicine; PCP Family Medicine; Visit Provider Surgery
PROC: 0FT44ZZ Resection of Gallbladder, Percutaneous Endoscopic Approach (ICD-10-PCS; CPT 47562; principal; 2022-09-15 15:00)
DX: K80.12 Calculus of gallbladder with acute and chronic cholecystitis without obstruction (principal); K82.1 Hydrops of gallbladder; I10 Essential (primary) hypertension
CPT/HCPCS: 47562; 36415; 74177; 76705; 80053; 81001; 83605; 83690; 85025; 87040; 88304; J0330; J1100; J1170; J1885; J2250; J2270; J2405; J2543; J2704; J2710; J3010; J7030; J7120; Q9967

== ENCOUNTER 2022-09-22 18:58 | Inpatient (IN) | payer OTHER, SELFPAY ==
--- NOTE | ~2022-09-22 | XR_ITS ---
EXAMINATION: XR ERCP DATE: 09/25/2022 16:00 INDICATION: Gallstones. TECHNIQUE: 2 spot fluoroscopic images of the right upper quadrant were obtained during endoscopic ret rograde cholangiopancreatography (ERCP) performed by Dr. Srivastava. Radiologist was not present for the imaging or procedure. The amount of fluoroscopy time used during this procedure was 2.7 minutes. COMPARISON: MRCP dated 09/23/22 FINDINGS: Cholecystectomy clips in right upper quadrant. Images demonstrate cannulation of the gallbladder and retrograde contrast injection into the distal main pancreatic duct and common bile duct. IMPRESSION: 1. Fluoroscopy utilized during ERCP . Please refer to the ERCP procedure note for additional details. Reviewed, dictated and finalized at location A. IMPRESSION: 1. Fluoroscopy utilized during ERCP . Please refer to the ERCP procedure note f or additional details.
--- NOTE | ~2022-09-22 | MR_ITS ---
EXAMINATION: MR MRCP wo/w con/w 3D wo ind DATE: 09/23/2022 13:05 INDICATION: Hyperbilirubinemia. Transaminitis. TECHNIQUE: Magnetic resonance imaging (MRI) of the abdomen was performed without and with 12 mL Multi Denys intravenous contrast. Sequences included coronal T2-weighted FS FSE, coronal T2-weighted FSE, a xial T1-weighted LAVA, coronal FS FIESTA, axial dual-echo T1-weighted SPGR, coronal lava-FLEX, sagitt al T2-weighted FSE, axial T2-weighted FSE, and axial DWI. Thick-slab T2-weighted FSE images were obta ined for magnetic resonance cholangiopancreatography (MRCP). Maximum intensity projection 3-D reconst ructions of the volumetric data were created by the technologist. Postcontrast sequences included cor onal LAVA-flex and time course of axial T1-weighted LAVA. COMPARISON: CT abdomen and pelvis 09/22/2022 FINDINGS: ABDOMEN MRI: There is a 3.4 cm cyst in the liver. There is a 5 mm cyst in the liver. There is fat str anding in the gallbladder fossa, consistent with recent cholecystectomy. There is fat stranding at a likely port site in anterior abdominal wall in the epigastric region. The spleen, pancreas, adrenal g lands, and kidneys are normal. There are no dilated loops of bowel. There is physiologic fluid in the pelvis. There are no pathologically enlarged lymph nodes. There are cysts in the breasts measuring u p to 12 mm on the left. ABDOMEN MRCP: The common duct is normal in caliber and measures 10 mm. There is a 3 mm stone in the c ommon bile duct. IMPRESSION: 1. 3 mm stone in the common bile duct. Reviewed, dictated and finalized at location A.
--- NOTE | ~2022-09-22 | CT_ITS ---
EXAMINATION: CT abdomen pelvis w con DATE: 09/22/2022 20:44 INDICATION: abdominal pain, s/p lap rishi elevated LFT's TECHNIQUE: Computed tomography (CT) of the abdomen and pelvis was performed with 100 mL Omnipaque-350 intravenous contrast. Automated exposure control and iterative reconstruction technique were employe d. The dose-length product was 315.91 mGy-cm. COMPARISON: 09/15/2022. FINDINGS: Lower thorax: Unremarkable Liver: Simple right lobe cyst. Subcentimeter left lobe hypodensity, too small to characterize but lik marcel represents a cyst or hemangioma. Biliary/Gallbladder: Gallbladder is absent. Small amount of premature change in the gallbladder fossa . Mild intrahepatic and extrahepatic bile duct dilation. No obstructing stone or mass. Pancreas: No mass or duct dilation. Spleen: Normal. Adrenals:No mass. Kidneys: No mass, stone, or hydronephrosis. GI tract: Moderate distal esophageal and gastric wall edema. Submucosal fat deposition in the proxima l colon. Mild colonic wall edema affecting the sigmoid colon No small or large bowel dilation. Normal appendix. Mesentery/Peritoneum: No ascites, mass, or free air. Retroperitoneum: No mass. Pelvis: Persistent focal region of endometrial thickening. Empty urinary bladder. Soft Tissues: Expected postsurgical changes. Bones: No acute osseous finding. IMPRESSION: Moderate esophagitis/gastritis. Status post recent cholecystectomy with inflammatory changes in the gallbladder fossa. Mild intrahepatic and hepatic bile duct dilation, without obstructing stone or mass detected. Mild sigmoid wall edema may reflect a component of colitis in the appropriate clinical context. Endometrial thickening, may represent hyperplasia or polyp. Recommend nonemergent outpatient pelvic u ltrasound for further evaluation. Reviewed, dictated and finalized at location K. IMPRESSION: Moderate esophagitis/gastritis. Status post recent cholecystectomy with inflammatory changes in the gallbladder fossa. Mild intrahepatic and hepatic bile duct dilation, without obstructing stone or mass detected. Mild sigmoid wall edema may reflect a component of colitis in the appropriate c linical context. Endometrial thickening, may represent hyperplasia or polyp. Recommend nonemerge nt outpatient pelvic ultrasound for further evaluation.
[2022-09-22 19:06] VITALS: BP 142/79; PULSE 98; RESP 22; TEMP 37.1; O2SAT 99
[2022-09-22 19:21] LABS: Basophils Percent Auto 0.4 % (0.2-1.2); Eosinophils Absolute Auto 0.1 K/mm3 (0-0.3); Eosinophils Percent Auto 0.5 % (0-4.4); Hematocrit 41.8 % (37.0-47.0); Hemoglobin 14.6 g/dL (12.0-15.0); Immature Granulocyte Absolute 0.05 K/mm3 (0.00-0.031); Immature Granulocyte Percent A 0.5 % (0-0.5); Lymphocytes Absolute Auto 1.71 K/mm3 (0.9-3.2); Lymphocytes Percent Auto 15.6 % (18.3-44.2); Mean Corpuscular HGB Conc 34.9 g/dl (32-36); Mean Corpuscular Hemoglobin 29.1 pg (26-34); Mean Corpuscular Volume 83.3 fl (80-100); Monocytes Absolute Auto 0.7 K/mm3 (0.1-0.6); Monocytes Percent Auto 6.8 % (2.6-8.5); Neutrophils Absolute Auto 8.4 K/mm3 (1.3-6.7); Neutrophils Percent Auto 76.2 % (45.5-73.1); Red Blood Count 5.02 M/mm3 (4.2-5.4); Red Cell Distribution Width 11.9 % (11.5-14.5)
[2022-09-22 19:28] LABS: Alanine Aminotransferase 321 U/L (6-35); Alkaline Phosphatase 180 U/L (38-126); Anion Gap 11 mmol/L (8-16); Aspartate Amino Transferase 519 U/L (14-36); Bilirubin,Total 5.1 mg/dL (0.2-1.3); Blood Urea Nitrogen 15 mg/dL (7-17); Calcium 10.3 mg/dL (8.4-10.2); Carbon Dioxide 27 mmol/L (22-30); Chloride 97 mmol/L (98-107); Estimated Glomerular Filt Rate > 60; Glucose 137 mg/dL (65-110); Lipase 84 U/L (23-300); Potassium 3.1 mmol/L (3.4-5.0); Sodium 135 mmol/L (137-145)
[2022-09-22 19:43] LABS: Platelet Estimate Adequate (Adequate)
[2022-09-22 20:01] LABS: Schistocytes None Seen (NORMAL)
[2022-09-22 20:02] VITALS: RESP 29
[2022-09-22 20:06] VITALS: BP 140/82; PULSE 74; O2SAT 100
[2022-09-22 20:15] VITALS: PULSE 78; O2SAT 100
[2022-09-22 20:16] VITALS: BP 148/81; PULSE 78; RESP 22; O2SAT 100
[2022-09-22 20:19] LABS: Appearance Urine Clear (Clear); Bacteria Urine None Seen /hpf; Bilirubin Urine 1+ (Negative); Blood Urine Negative (Negative); Color Urine Dark Yellow (Yellow); Glucose Urine UA Negative (Negative); Ketones Urine 1+ mg/dL (Negative); Leukocyte Esterase Ur Trace LEU/UL (Negative); Nitrate Urine Negative (Negative); Non Pathogenic Casts 0-2; Protein Urine Trace mg/dL (Negative); RBC Urine 0-2 /hpf (0-2); Specific Grav Ur 1.018 (1.001-1.035); Squamous Epithelial Cell Urine None seen /hpf (Few); WBC Urine 0-5 /hpf
[2022-09-22 20:23] LABS: Add Urine Microscopic? YES
[2022-09-22 20:25] LABS: Pregnancy On Board Control Positive; Urine Pregnancy Test Negative
[2022-09-22] MEDS: MORPHINE SULFATE (*CRX) 4 MG/ML INJ IV PUSH (20:32)
[2022-09-22] MEDS: ONDANSETRON INJ 4 MG/2 ML VIAL IV PUSH (20:32)
[2022-09-22] MEDS: SODIUM CHLORIDE 0.9% IV 1,000 ML 999 ML IV CONT (20:32)
--- NOTE | 2022-09-22 21:28 | ED.NAVMDI ---
HPI - Nausea/Vomiting/Diarrhea General Chief complaint: Nausea/Vomiting/Diarrhea <Carolyn Davila PA-C - Last Filed: 09/22/22 23:29> Stated complaint: lap rishi 1 week ago - n/v and abdominal pain <Carolyn Davila PA-C - Last Filed: 09/22/22 23:29> Time Seen by Provider: 09/22/22 20:20 <Carolyn Davila PA-C - Last Filed: 09/22/22 23:29> Source: patient <ANJALI Tenorio Last Filed: 09/22/22 23:29> Mode of arrival: ambulatory <ANJALI Tenorio Last Filed: 09/22/22 23:29> Limitations: no limitations <ANJALI Tenorio Last Filed: 09/22/22 23:29> History of Present Illness HPI Narrative: This is a 52-year-old female that presents the emergency department for vomiting and diarrhea. Ongoing since this afternoon. Reports she has not been able to keep anything down. She recently underwent laparoscopic cholecystectomy with Dr. White 1 week ago. Reports she had been doing well postoperatively until today. Reports diffuse abdominal pain. Denies fevers or dysuria. <Carolyn Davila PA-C - Last Filed: 09/22/22 23:29> Related Data Home medications: Home Medications Medication Instructions Recorded Confirmed fexofenadine 60 mg-pseudoephedrine 1 tablet PO Q12H 06/22/22 09/15/22 ER 120 mg tablet,ext.release,12 hr (Lorena-D 12 Hour) mecobalamin (vitamin B12) 1,000 1,000 mcg PO DAILY 06/22/22 09/15/22 mcg lozenges norethindrone (contraceptive) 0.35 0.35 mg PO DAILY 07/24/22 09/15/22 mg tablet (Jessica) fluticasone furoate 50 50 mcg inhalation BID 09/15/22 09/15/22 mcg/actuation blister powder for inhalation <ANJALI Tenorio Last Filed: 09/22/22 23:29> Allergies/Adverse reactions: Allergies Allergy/AdvReac Type Severity Reaction Status Date / Time aspirin Allergy Severe Swelling Verified 09/22/22 18:59 <Carolyn Davila PA-C - Last Filed: 09/22/22 23:29> Review of Systems Review of Systems: CONSTITUTIONAL: Denies fever GASTROINTESTINAL: Reports abdominal pain, nausea, vomiting, and diarrhea. GENITOURINARY: Denies dysuria or hematuria. <Carolyn Davila PA-C - Last Filed: 09/22/22 23:29> All systems reviewed & are unremarkable except as noted in HPI and below <Carolyn Davila PA-C - Last Filed: 09/22/22 23:29> [facility] Past Medical History Medical History: Medical History Allergies Essential hypertension H/O mitral valve prolapse Migraine headache <Carolyn Davila PA-C - Last Filed: 09/22/22 23:29> Surgical History Surgical History: Surgical History S/P nasal surgery [place] teeth removed <Carolyn Davila PA-C - Last Filed: 09/22/22 23:29> Family History Family History: Family History Mother Hypertension Father Patient's father is in good health Alcoholism Sibling Patient's sister is in good health Asthma Other Liver cancer <Carloyn Davila PA-C - Last Filed: 09/22/22 23:29> Social History Social History: Social History Smoking status: Never smoker Second hand tobacco smoke exposure: No Alcohol intake: current Drinks per week: 5 Substance use: never Lack of Transportation: No Lack of Food: Never True Current Housing: I Have Housing Concerned About Future Housing: No Difficulty Paying Gas/Electric Bills: No Difficulty Paying for Meds: No Currently Unemployed: No Education: Master's Degree or Higher Difficulty w/ Childcare or Family Care: No Living arrangements: with family Gender identity (if verbalized by the patient): Female Spiritual care concerns: No Agree to blood products: Yes <Carolyn Davila PA-C - Last Filed: 09/22/22 23:29> Exam Narrative: GENERAL: Well-appearing, well-nouris
[2022-09-22 22:12] LABS: Magnesium 1.9 mg/dL (1.6-2.3)
--- NOTE | 2022-09-22 23:20 | ADMGEN ---
This patient, Little Miramontes, was admitted to [facility] Room 309-01. Patient/family oriented to hospital policies and general routines including ID bracelet, bed and alarms, visiting hours, pain management, procedures, bathroom and other care routines, personal items, smoking policy, room service/diet, and visiting hours. Information on how to activate the Rapid Response Team has been discussed. Patient/Family are encouraged to report perceived risks to care and to ask questions if they do not understand what they are told or what they should do.
[2022-09-22 23:26] VITALS: BP 142/86; PULSE 81; RESP 16; TEMP 36.1; O2SAT 100; BMI 25.6
[2022-09-22] MEDS: SODIUM CHLORIDE 0.9% IV 1,000 ML 125 ML IV CONT (23:44)
[2022-09-22] MEDS: PIPERACILLN/TAZ 3.375GM/NS50ML 3.375 GM/50 ML BAG IVPB (23:56)
[2022-09-23] VITALS (10 sets, daily range): BP systolic 108–133; BP diastolic 65–80; PULSE 66–86; RESP 12–20; TEMP 36.1–36.6; O2SAT 100
[2022-09-23] MEDS: ONDANSETRON INJ 4 MG/2 ML VIAL IV PUSH ×2 (00:06→14:07)
[2022-09-23] MEDS: MORPHINE SULFATE (*CRX) 4 MG/ML INJ IV PUSH (00:07)
[2022-09-23] MEDS: POTASSIUM CHLORIDE INJ 40 MEQ in SODIUM CHLORIDE 0.9% IV 500 ML 130 MEQ IVPB (01:00)
[2022-09-23] MEDS: PANTOPRAZOLE SODIUM IV 40 MG VIAL IV PUSH (01:17)
--- NOTE | 2022-09-23 05:46 | PM.IMHP ---
H&P: HPI History of Present Illness Date/Time: 09/23/22 05:46 Chief Complaint: Diarrhea and vomiting Narrative: 52-year-old female with a past medical history of essential hypertension, allergic rhinitis and recent cholecystectomy who presented to the ER with nausea vomiting and diarrhea. She reports that she was strictly following her postop diet and still breakfast yesterday. At that time she has some toast with a small amount of bladder and some fruit. Just before lunch time she began having severe periumbilical and lower abdominal pain. It was accompanied by severe nausea and several episodes of vomiting of yellow to clear material. She had 3-4 episodes of mushy brown to orange colored stool. She was having cold clammy sweats and felt as if she may have a fever. She checked her temperature multiple times and had a oral temperature of 94? before heard temperature eventuated normalized. She denies any chest pain or shortness of breath. She has not been having any cough or congestion. She does not notice any scleral icterus but admits that she really has not been looking in the mere over the last 8 days or so. She did have scleral icterus noted on exam. She reports that the abdominal pain is crampy in nature and severe in intensity. She has not noticed any eliciting factors. It was relieved significantly with morphine provided in the ER with about 6 hours of pain relief. She has not had any further loose stools since arriving to the hospital. She denies any ill contacts. She does drink 4-5 alcoholic beverages a week but has not done so in the last couple of weeks. Review of Systems Review of Systems: 12 systems were reviewed with pertinent positives and negatives per HPI. Except as documented in the HPI, all other systems were reviewed and are negative. [facility] Past Medical History Medical History (Updated 09/23/22 @ 07:21 by Richa Richmond DO) Chronic sinusitis Environmental and seasonal allergies Essential hypertension H/O mitral valve prolapse Migraine headache Surgical History Surgical History S/P nasal surgery [place] teeth removed Family History Family History Mother Hypertension Father Patient's father is in good health Alcoholism Sibling Patient's sister is in good health Asthma Other Liver cancer Social History Social History (Updated 09/23/22 @ 07:13 by Richa Richmond, ) Social History: Code status: Full code Smoking status: Never smoker Second hand tobacco smoke exposure: No Alcohol intake: current Drinks per week: 5 Alcohol use details: She drinks 4-5 glasses of wine a week. Substance use: never Lack of Transportation: No Lack of Food: Never True Current Housing: I Have Housing Concerned About Future Housing: No Difficulty Paying Gas/Electric Bills: No Difficulty Paying for Meds: No Currently Unemployed: No Education: Master's Degree or Higher Difficulty w/ Childcare or Family Care: No Living arrangements: with family Additional living arrangements comments: She is living with her life partner. 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 Gender identity (if verbalized by the patient): Female Spiritual care concerns: No Agree to blood products: Yes Meds Home Medications and Allergies Home Medications Medication Instructions Recorded Confirmed Type eletriptan 40 mg tablet (Relpax) See Rx Instructions PO .COMPLEX 12/23/21 09/22/22 Rx #90 tabs fexofenadine 60 mg-pseudoephedrine 1 tablet PO Q12H 06/22/22 09/22/22 History ER 120 mg tablet,ext.release,12 hr (Lorena-D 12 Hour) mecobalamin (vitamin B12) 1,000 1,000 mcg PO DAILY 06/22/22 09/22/22 History mcg lozenges labetalol 100 mg tablet See
[2022-09-23] MEDS: PIPERACILLN/TAZ 3.375GM/NS50ML 3.375 GM/50 ML BAG IVPB ×3 (06:07→16:59)
[2022-09-23 06:13] LABS: Basophils Percent Auto 0.6 % (0.2-1.2); Eosinophils Absolute Auto 0.2 K/mm3 (0-0.3); Eosinophils Percent Auto 3.5 % (0-4.4); Hemoglobin 12.1 g/dL (12.0-15.0); Immature Granulocyte Absolute 0.05 K/mm3 (0.00-0.031); Immature Granulocyte Percent A 0.7 % (0-0.5); Lymphocytes Percent Auto 38.3 % (18.3-44.2); Mean Corpuscular HGB Conc 33.6 g/dl (32-36); Mean Corpuscular Hemoglobin 29.2 pg (26-34); Mean Platelet Volume 9.7 fl (7.4-10.4); Monocytes Absolute Auto 0.6 K/mm3 (0.1-0.6); Monocytes Percent Auto 8.4 % (2.6-8.5); Neutrophils Absolute Auto 3.3 K/mm3 (1.3-6.7); Neutrophils Percent Auto 48.5 % (45.5-73.1); Platelet Count Result 336 k/mm3 (150-375); Red Blood Count 4.14 M/mm3 (4.2-5.4); Red Cell Distribution Width 11.9 % (11.5-14.5); White Blood Count 6.8 K/mm3 (4.5-10.0)
[2022-09-23 06:37] LABS: Alanine Aminotransferase 674 U/L (6-35); Albumin Level 3.7 g/dL (3.5-5.1); Alkaline Phosphatase 152 U/L (38-126); Anion Gap 4 mmol/L (8-16); Bilirubin,Total 4.5 mg/dL (0.2-1.3); Blood Urea Nitrogen 10 mg/dL (7-17); Calcium 8.5 mg/dL (8.4-10.2); Carbon Dioxide 26 mmol/L (22-30); Chloride 105 mmol/L (98-107); Estimated CRCL calculation 55 ml/min; Estimated Glomerular Filt Rate > 60; Glucose 79 mg/dL (65-110); Potassium 3.4 mmol/L (3.4-5.0); Sodium 135 mmol/L (137-145)
[2022-09-23 06:42] LABS: Aspartate Amino Transferase 877 U/L (14-36)
--- NOTE | 2022-09-23 09:37 | WPDGICN ---
Assessment and Plan Assessment and plan (1) Elevated LFTs: Code(s): R79.89 - Other specified abnormal findings of blood chemistry Status: Acute Assessment and Plan: Patient with elevated LFTs associated with abdominal pain 1 week after her laparoscopic cholecystectomy for acute cholecystitis. Patient is somewhat improved this morning after intense pain yesterday. LFTs remains somewhat elevated this morning but only modest decline noted. Plan to continue broad-spectrum antibiotics. MRCP to evaluate the biliary tree continue to monitor LFTs in the interim. I cannot exclude passage of a stone or clot. No evidence for significant hematoma or impingement on the bile duct by CT scan imaging. Will follow with you during this hospital stay. (2) History of cholecystectomy: Code(s): Z90.49 - Acquired absence of other specified parts of digestive tract Status: Acute Assessment and Plan: Laparoscopic cholecystectomy for acute cholecystitis 1 week ago was uneventful. (3) Abdominal pain: Qualifiers: Abdominal location: generalized Qualified Code(s): R10.84 - Generalized abdominal pain Code(s): R10.9 - Unspecified abdominal pain Status: Acute Assessment and Plan: Sudden onset of abdominal pain yesterday associated with elevated LFTs suggest passage of a residual common bile duct gallstone. Will continue monitor LFTs. initial evaluation if with MRCP advised. GI Consult Note Consult date/time: 09/23/22 09:37 Reason for consult: Elevated LFTs. , abdominal pain HPI: Little Miramontes is a 52 year old female I am asked to see because of elevated LFTs and abdominal pain 1 week after cholecystectomy. Patient presented with rather severe acute cholecystitis 1 week ago underwent laparoscopic cholecystectomy. Patient found to have calculous cholecystitis and recovered well. She discharged home felt great on Sunday morning. On Sunday afternoon she developed rather intense abdominal pain. Upon presenting to the hospital was noted to have elevated LFTs. She was given pain medications antibiotics and admitted to the hospital. CT scan imaging reveals some mild inflammation in the gallbladder fossa consistent with her recent surgery. Patient feels somewhat improved this morning but has medications on board in does not feel quite back to normal. Past medical history is significant for hypertension. Review of Systems Review of Systems: Review of systems noncontributory. [facility] Past Medical History Medical History (Updated 09/23/22 @ 09:39 by Kamran Srivastava MD) Chronic sinusitis Environmental and seasonal allergies Essential hypertension H/O mitral valve prolapse Migraine headache Surgical History Surgical History S/P nasal surgery [place] teeth removed Family History Family History Mother Hypertension Father Patient's father is in good health Alcoholism Sibling Patient's sister is in good health Asthma Other Liver cancer Social History Social History (Updated 09/23/22 @ 07:13 by Richa Richmond DO) Social History: Code status: Full code Smoking status: Never smoker Second hand tobacco smoke exposure: No Alcohol intake: current Drinks per week: 5 Alcohol use details: She drinks 4-5 glasses of wine a week. Substance use: never Lack of Transportation: No Lack of Food: Never True Current Housing: I Have Housing Concerned About Future Housing: No Difficulty Paying Gas/Electric Bills: No Difficulty Paying for Meds: No Currently Unemployed: No Education: Master's Degree or Higher Difficulty w/ Childcare or Family Care: No Living arrangements: with family Additional living arrangements comments: She is living with her life partner. Occupation/Education: occupation Additional occup
--- NOTE | 2022-09-23 09:58 | PM.IMHP ---
H&P: HPI History of Present Illness Date/Time: 09/23/22 09:58 Chief Complaint: Abdominal pain and vomiting Narrative: Patient is a 52-year-old woman who about a week ago underwent laparoscopic cholecystectomy for acute cholecystitis with gallstones. Pathology did show acute on chronic cholecystitis with gallstones. The surgery was uneventful and the patient did well until yesterday. Yesterday she began having abdominal pain and multiple episodes of vomiting. She came to the emergency room. She was noted to have tenderness and to be somewhat dehydrated. Her liver enzymes were elevated her bilirubin was 5.1. CT scan showed no evidence of acute pancreatitis. There was mild biliary ductal dilatation. No obstructing lesions were noted. Patient has received IV Zosyn, IV fluid resuscitation and analgesics. She feels good right now with no nausea and no abdominal pain but does point out that after her pain medicine wore off last night she had to have more analgesics. Her bilirubin is slightly lower today at 4.5. She is admitted for vomiting abdominal pain and hyperbilirubinemia status post laparoscopic cholecystitis for cholecystitis with gallstones. MRCP has been ordered but is pending. Review of Systems Review of Systems: All systems reviewed & are unremarkable except as noted in HPI and below (HPI and those items noted below) Constitutional: Constitutional: Denies chills and Denies fever(s) Cardiovascular: Cardiovascular: Denies chest pain, Denies diaphoresis, Denies dyspnea and Denies paroxysmal nocturnal dyspnea Respiratory: Respiratory: Denies chest congestion, Denies cough and Denies dyspnea Integumentary/Breasts: Skin/Breast: Denies lesions and Denies rash PMFSH Past Medical History Medical History Chronic sinusitis Environmental and seasonal allergies Essential hypertension H/O mitral valve prolapse Migraine headache Surgical History Surgical History S/P nasal surgery [place] teeth removed Family History Family History Mother Hypertension Father Patient's father is in good health Alcoholism Sibling Patient's sister is in good health Asthma Other Liver cancer Social History Social History Social History: Code status: Full code Smoking status: Never smoker Second hand tobacco smoke exposure: No Alcohol intake: current Drinks per week: 5 Alcohol use details: She drinks 4-5 glasses of wine a week. Substance use: never Lack of Transportation: No Lack of Food: Never True Current Housing: I Have Housing Concerned About Future Housing: No Difficulty Paying Gas/Electric Bills: No Difficulty Paying for Meds: No Currently Unemployed: No Education: Master's Degree or Higher Difficulty w/ Childcare or Family Care: No Living arrangements: with family Additional living arrangements comments: She is living with her life partner. 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 Gender identity (if verbalized by the patient): Female Spiritual care concerns: No Agree to blood products: Yes Meds Home Medications and Allergies Home Medications Medication Instructions Recorded Confirmed Type eletriptan 40 mg tablet (Relpax) See Rx Instructions PO .COMPLEX 12/23/21 09/22/22 Rx #90 tabs fexofenadine 60 mg-pseudoephedrine 1 tablet PO Q12H 06/22/22 09/22/22 History ER 120 mg tablet,ext.release,12 hr (Lorena-D 12 Hour) mecobalamin (vitamin B12) 1,000 1,000 mcg PO DAILY 06/22/22 09/22/22 History mcg lozenges labetalol 100 mg tablet See Rx Instructions .Route 06/30/22 09/22/22 Rx .COMPLEX #180 tabs amlodipine 5 mg tablet 5 mg PO DA
[2022-09-23 10:04] LABS: Bilirubin Direct 0.3 mg/dL (0-0.3); Bilirubin Indirect 2.7 mg/dL (0-1.1); Bilirubin,Total 4.3 mg/dL (0.2-1.3)
[2022-09-23 10:10] LABS: Alanine Aminotransferase 692 U/L (6-35); Albumin Level 3.8 g/dL (3.5-5.1); Alkaline Phosphatase 156 U/L (38-126); Bilirubin Direct 0.4 mg/dL (0-0.3); Bilirubin,Total 4.3 mg/dL (0.2-1.3)
[2022-09-23 11:32] LABS: Aspartate Amino Transferase 914 U/L (14-36)
[2022-09-23] MEDS: MORPHINE SULFATE (*CRX) 4 MG/ML INJ 2 MG IV PUSH ×2 (14:06→18:35)
[2022-09-23] MEDS: SODIUM CHLORIDE 0.9% IV 1,000 ML 125 ML IV CONT (14:07)
[2022-09-23] MEDS: LABETALOL HCL 100 MG TABLET PO (17:02)
[2022-09-23] MEDS: HYDROmorphone HCL INJ (*CRX) 1 MG/ML SYR IV PUSH (21:32)
[2022-09-24] VITALS (11 sets, daily range): BP systolic 132–148; BP diastolic 71–81; PULSE 60–84; RESP 16–20; TEMP 36.2–36.6; O2SAT 99–100
[2022-09-24] MEDS: PIPERACILLN/TAZ 3.375GM/NS50ML 3.375 GM/50 ML BAG IVPB ×4 (00:34→17:34)
[2022-09-24] MEDS: SODIUM CHLORIDE 0.9% IV 1,000 ML 125 ML IV CONT ×2 (00:34→08:48)
[2022-09-24] MEDS: HYDROmorphone HCL INJ (*CRX) 1 MG/ML SYR IV PUSH ×5 (02:32→23:22)
[2022-09-24] MEDS: BELLADONNA ALK/PHENOB ELIX 10 ML, MAG HYDROX/ALUMINUM HYD/SIMETH 30 ML, LIDOCAINE HCL 2... PO (06:22)
[2022-09-24] MEDS: FAMOTIDINE 20 MG/2 ML VIAL IV PUSH ×2 (08:47→20:38)
[2022-09-24] MEDS: LABETALOL HCL 100 MG TABLET PO ×2 (08:47→20:39)
[2022-09-24] MEDS: CYANOCOBALAMIN 1,000 MCG TABLET 1000 MCG PO (08:48)
[2022-09-24] MEDS: POTASSIUM CHLORIDE 20 MEQ ER TABLET PO (08:48)
[2022-09-24 09:29] LABS: Hematocrit 33.4 % (37.0-47.0); Hemoglobin 11.4 g/dL (12.0-15.0); Mean Corpuscular HGB Conc 34.1 g/dl (32-36); Mean Corpuscular Hemoglobin 29.5 pg (26-34); Mean Corpuscular Volume 86.5 fl (80-100); Mean Platelet Volume 9.2 fl (7.4-10.4); Platelet Count Result 287 k/mm3 (150-375); Red Blood Count 3.86 M/mm3 (4.2-5.4); Red Cell Distribution Width 12.1 % (11.5-14.5); White Blood Count 4.5 K/mm3 (4.5-10.0)
[2022-09-24 09:42] LABS: Alanine Aminotransferase 662 U/L (6-35); Albumin Level 3.6 g/dL (3.5-5.1); Alkaline Phosphatase 214 U/L (38-126); Anion Gap 6 mmol/L (8-16); Aspartate Amino Transferase 483 U/L (14-36); Bilirubin,Total 4.4 mg/dL (0.2-1.3); Blood Urea Nitrogen 5 mg/dL (7-17); Calcium 8.5 mg/dL (8.4-10.2); Carbon Dioxide 23 mmol/L (22-30); Chloride 103 mmol/L (98-107); Estimated CRCL calculation 72 ml/min; Estimated Glomerular Filt Rate > 60; Glucose 107 mg/dL (65-110); Potassium 3.1 mmol/L (3.4-5.0); Sodium 132 mmol/L (137-145)
--- NOTE | 2022-09-24 10:05 | WPDGIPROGNO ---
Progress Note: A&P Assessment and Plan (1) Elevated LFTs: Code(s): R79.89 - Other specified abnormal findings of blood chemistry Status: Acute Assessment and Plan: LFTs appear to have stabilized. MRCP reveals apparent common bile duct gallstone. This is likely etiology. (2) History of cholecystectomy: Code(s): Z90.49 - Acquired absence of other specified parts of digestive tract Status: Chronic Assessment and Plan: Lap choly 1 week ago appears to be healing adequately. (3) Abdominal pain: Qualifiers: Abdominal location: generalized Qualified Code(s): R10.84 - Generalized abdominal pain Code(s): R10.9 - Unspecified abdominal pain Status: Acute Assessment and Plan: Abdominal pain appears be retained common bile duct gallstone. (4) Choledocholithiasis: Code(s): K80.50 - Calculus of bile duct without cholangitis or cholecystitis without obstruction Status: Acute Assessment and Plan: MRCP suggest retained common bile duct gallstones. Plan for ERCP tomorrow for removal. Subjective Date/time seen: 09/24/22 10:05 Interval history: Patient alert comfortable this morning. Reports recurrent pain when she tries to eat. Otherwise more comfortable at rest. Review of Systems Review of Systems: Review of systems noncontributory. Exam Narrative: Physical exam reveals patient be alert comfortable at rest lying in bed. Vital signs stable. HEENT exam reveals no icterus. Lungs are clear. Heart without murmur. Abdomen bowel sounds present soft no tenderness at present. No organomegaly noted. Objective Data Vital Signs Vital Signs: Vital Signs - 24 hr 09/23/22 12:00 09/23/22 14:00 09/23/22 16:00 Temperature 97.3 F L Pulse Rate 78 73 80 Respiratory Rate 16 Blood Pressure 112/70 Pulse Oximetry 100 Oxygen Delivery 09/23/22 21:28 09/23/22 20:22 09/23/22 20:00 Temperature 98 F Pulse Rate 75 86 Respiratory Rate 20 Blood Pressure 133/80 Pulse Oximetry 100 Oxygen Delivery Room Air 09/23/22 23:48 09/24/22 00:00 09/24/22 04:00 Temperature Pulse Rate 76 63 76 Respiratory Rate Blood Pressure Pulse Oximetry Oxygen Delivery 09/24/22 06:00 09/24/22 08:47 Temperature 97.9 F Pulse Rate 79 79 Respiratory Rate 20 Blood Pressure 134/80 Pulse Oximetry 100 Oxygen Delivery Intake/Output Intake/Output: Intake & Output 09/21/22 09/22/22 09/23/22 09/24/22 23:59 23:59 23:59 23:59 Intake Total 1000 2150 1100 Output Total 0 Balance 1000 2150 1100 Meds/Results Medications: Active Medications Generic Name Dose Route Start Last Admin Trade Name Freq PRN Reason Stop Dose Admin Cyanocobalamin 1,000 mcg 09/23/22 09:00 09/24/22 08:48 Cyanocobalamin 1,000 Mcg Tablet PO 1,000 mcg QAM CONOR Administration Famotidine 20 mg 09/24/22 09:00 09/24/22 08:47 Famotidine 20 Mg/2 Ml Vial IV PUSH 20 mg Q12HR CONOR Administration Hydromorphone HCl 1 mg 09/23/22 21:24 09/24/22 06:14 Hydromorphone Hcl Inj (*Crx) 1 Mg/Ml Syr IV PUSH 1 mg Q3H PRN Administration Pain Rated 7-10 Sodium Chloride 1,000 mls @ 125 mls/hr 09/22/22 22:10 09/24/22 08:48 Normal Saline Iv IV CONT 125 mls/hr .Q8H CONOR Administration Piperacillin/Tazobactam/Dextrose 3.375 gm in 50 mls @ 100 mls/hr 09/23/22 06:00 09/24/22 06:44 Zosyn 3.375 Gm/Ns 50 Ml IVPB Infused Q6H CONOR Infusion Labetalol HCl 100 mg 09/23/22 09:00 09/24/22 08:47 Labetalol Hcl 100 Mg Tablet PO 100 mg Q12H CONOR Administration Loratadine/Pseudoephedrine Sulfate 1 tab 09/25/22 09:00 Loratadine/Pseudoephedrine (*Crx) 10/240 Mg Tablet Er 24 Hr PO QAM CONOR Ondansetron HCl 4 mg 09/22/22 22:10 09/23/22 14:07 Ondansetron Inj 4 Mg/2 Ml Vial IV PUSH 4 mg Q4H PRN Administration Nausea Potassium Chloride 20 meq 09/23/22 08:00 09/24/22 0
--- NOTE | 2022-09-24 10:10 | PM.IMPN ---
Progress Note: A&P Assessment and Plan (1) Abdominal pain: Qualifiers: Abdominal location: generalized Qualified Code(s): R10.84 - Generalized abdominal pain Code(s): R10.9 - Unspecified abdominal pain Status: Acute (2) Transaminitis: Code(s): R74.01 - Elevation of levels of liver transaminase levels Status: Acute (3) Hyperbilirubinemia: Code(s): E80.6 - Other disorders of bilirubin metabolism Status: Acute (4) Acute hypokalemia: Code(s): E87.6 - Hypokalemia Status: Acute (5) Nausea vomiting and diarrhea: Code(s): R11.2 - Nausea with vomiting, unspecified; R19.7 - Diarrhea, unspecified Status: Acute (6) Essential hypertension: Code(s): I10 - Essential (primary) hypertension Status: Acute (7) Choledocholithiasis: Code(s): K80.50 - Calculus of bile duct without cholangitis or cholecystitis without obstruction Status: Acute (8) Acute cholangitis: Code(s): K83.09 - Other cholangitis Status: Acute Plan Intractable abdominal pain Suspecting acute cholangitis. recent cholecystectomy with acute worsening transaminitis hyperbilirubinemia. Patient was placed on empiric antibiotic therapy with Zosyn. MRCP? 09/23/22 13:08 IMPRESSION: 1. 3 mm stone in the common bile duct. Will continue IV fluid hydration. Elevated liver enzymes, total bilirubin, alk-phos without significant improvement P.r.n. antiemetics have been provided. P.r.n. pain medications with morphine. repeat CBC and CMP in a.m.. ERCP per GI Hyponatremia, hypokalemia Likely secondary to diarrhea Repeated with potassium chloride, start normal saline IV Follow-up BMP Essential hypertension Will continue patient's home antihypertensives with sips of water. Hypokalemia The patient received potassium supplements in the ER. Will repeat electrolyte panel in a.m.. Patient has been admitted as observation status. Subjective Date/time seen: 09/24/22 10:10 Interval history: I saw exam patient today, patient still has intermittent mid abdomen pain, denies nausea vomiting. I reviewed labs and imaging studies Exam Narrative: GENERAL: Pleasant, in no acute distress. Well-nourished. - EYES: EOMI. Anicteric. - HENT: Moist mucous membranes. - LUNGS: Clear to auscultation bilaterally, no wheezing, rhonchi, or rales. - CARDIOVASCULAR: Regular rate and rhythm. No murmur. No JVD. - ABDOMEN: Soft, mid abdominal tender and non-distended. No palpable masses. - EXTREMITIES: No edema. Peripheral pulses 2+. Non-tender. - NEUROLOGIC: No focal neurological deficits. CN II-XII grossly intact. - PSYCHIATRIC: Awake, Alert and oriented x 3. Appropriate mood and affect. - SKIN: No rashes or lesions. Warm. - LYMPH: No cervical lymphadenopathy. Objective Data Vital Signs Vital Signs: Vital Signs - 24 hr 09/23/22 12:00 09/23/22 14:00 09/23/22 16:00 Temperature 97.3 F L Pulse Rate 78 73 80 Respiratory Rate 16 Blood Pressure 112/70 Pulse Oximetry 100 Oxygen Delivery 09/23/22 21:28 09/23/22 20:22 09/23/22 20:00 Temperature 98 F Pulse Rate 75 86 Respiratory Rate 20 Blood Pressure 133/80 Pulse Oximetry 100 Oxygen Delivery Room Air 09/23/22 23:48 09/24/22 00:00 09/24/22 04:00 Temperature Pulse Rate 76 63 76 Respiratory Rate Blood Pressure Pulse Oximetry Oxygen Delivery 09/24/22 06:00 09/24/22 08:47 Temperature 97.9 F Pulse Rate 79 79 Respiratory Rate 20 Blood Pressure 134/80 Pulse Oximetry 100 Oxygen Delivery Intake/Output Intake/Output: Intake & Output 09/21/22 09/22/22 09/23/22 09/24/22 23:59 23:59 23:59 23:59 Intake Total 1000 2150 1100 Output Total 0 Balance 1000 2150 1100 Meds/Results Medications: Active Medications Generic Name Dose Route Start Last Admin Trade Name Freq PRN Reason Stop Dose Admin Cyanocobalamin 1,000 mcg 09/23/22 09:00 09/24/22
[2022-09-24 11:21] LABS: INR 1.1; Prothrombin Time 14.1 Seconds (11.1-14.7)
--- NOTE | 2022-09-24 11:27 | PHAR ---
The patient's home med of Eletriptan 40mg has been verified.
[2022-09-24] MEDS: POTASSIUM CHLORIDE 20 MEQ PACKET (FOR LIQUID) 40 MEQ PO (11:52)
[2022-09-24] MEDS: KCL 20MEQ/0.9% SOD CHL 1,000 ML 100 ML IV CONT ×2 (11:53→22:21)
--- NOTE | 2022-09-24 13:47 | PM.PNGS ---
Progress Note: A&P Assessment and Plan (1) Choledocholithiasis: Code(s): K80.50 - Calculus of bile duct without cholangitis or cholecystitis without obstruction Status: Acute Assessment and Plan: Dr. Srivastava is a note appreciated. Plans are to proceed with ERCP tomorrow. (2) History of cholecystectomy: Code(s): Z90.49 - Acquired absence of other specified parts of digestive tract Status: Chronic Assessment and Plan: Wounds healing well. No evidence of surgical complication. Subjective Subjective Date/Time Seen: 09/24/22 13:47 Patient reports: feels better, pain is less (Does get some abdominal pain when tries to eat, otherwise comfortable) and afebrile Exam GI: Inspection: non-distended, incision (Incisions healing well) and scaphoid GI Palp: Yes Soft to palpation, Yes Tenderness to palpation present (GI), No Guarding due to palpation present (GI), No Hernia present and No Palpable mass present Auscultation: normal bowel sounds Objective Data Vital Signs Vital Signs: Vital Signs - 24 hr 09/23/22 14:00 09/23/22 16:00 09/23/22 21:28 Temperature 36.3 C L 36.6 C Pulse Rate 73 80 75 Respiratory Rate 16 20 Blood Pressure 112/70 133/80 Pulse Oximetry 100 100 Oxygen Delivery 09/23/22 20:22 09/23/22 20:00 09/23/22 23:48 Temperature Pulse Rate 86 76 Respiratory Rate Blood Pressure Pulse Oximetry Oxygen Delivery Room Air 09/24/22 00:00 09/24/22 04:00 09/24/22 06:00 Temperature 36.6 C Pulse Rate 63 76 79 Respiratory Rate 20 Blood Pressure 134/80 Pulse Oximetry 100 Oxygen Delivery 09/24/22 08:47 Temperature Pulse Rate 79 Respiratory Rate Blood Pressure Pulse Oximetry Oxygen Delivery Intake/Output Intake/Output: Intake & Output 09/21/22 09/22/22 09/23/22 09/24/22 23:59 23:59 23:59 23:59 Intake Total 1000 2150 1460 Output Total 0 Balance 1000 2150 1460 Meds/Results Medications: Active Medications Generic Name Dose Route Start Last Admin Trade Name Freq PRN Reason Stop Dose Admin Cyanocobalamin 1,000 mcg 09/23/22 09:00 09/24/22 08:48 Cyanocobalamin 1,000 Mcg Tablet PO 1,000 mcg QAM CONOR Administration Famotidine 20 mg 09/24/22 09:00 09/24/22 08:47 Famotidine 20 Mg/2 Ml Vial IV PUSH 20 mg Q12HR CONOR Administration Hydromorphone HCl 1 mg 09/23/22 21:24 09/24/22 06:14 Hydromorphone Hcl Inj (*Crx) 1 Mg/Ml Syr IV PUSH 1 mg Q3H PRN Administration Pain Rated 7-10 Sodium Chloride 1,000 mls @ 125 mls/hr 09/22/22 22:10 09/24/22 08:48 Normal Saline Iv IV CONT 125 mls/hr .Q8H CONOR Administration Piperacillin/Tazobactam/Dextrose 3.375 gm in 50 mls @ 100 mls/hr 09/23/22 06:00 09/24/22 11:53 Zosyn 3.375 Gm/Ns 50 Ml IVPB 100 mls/hr Q6H CONOR Administration Potassium Chloride/Sodium Chloride 1,000 mls @ 100 mls/hr 09/24/22 10:15 09/24/22 11:53 Kcl 20 Meq/Ns IV CONT 100 mls/hr .Q10H CONOR Administration Labetalol HCl 100 mg 09/23/22 09:00 09/24/22 08:47 Labetalol Hcl 100 Mg Tablet PO 100 mg Q12H CONOR Administration Loratadine/Pseudoephedrine Sulfate 1 tab 09/25/22 09:00 Loratadine/Pseudoephedrine (*Crx) 10/240 Mg Tablet Er 24 Hr PO QAM [facility] Home Med Eletriptan 1 each 09/24/22 11:04 40 Mg Tablets BY MOUTH 10/24/22 11:03 Q2H PRN Headache Ondansetron HCl 4 mg 09/22/22 22:10 09/23/22 14:07 Ondansetron Inj 4 Mg/2 Ml Vial IV PUSH 4 mg Q4H PRN Administration Nausea Potassium Chloride 20 meq 09/23/22 08:00 09/24/22 08:48 Potassium Chloride 20 Meq Er Tablet PO 20 meq DAILY@0800 CONOR Administration Radiology Results: ITS Impressions Abdomen/Pelvis CT 09/22/22 20:46 IMPRESSION: Moderate esophagitis/gastritis. Status post recent cholecystectomy with inflammatory changes in the gallbladder fossa. Mild intrahepatic and hepatic bile duct dilation, without obstructing stone or mass
--- NOTE | 2022-09-24 18:43 | ADMGEN ---
This patient, Little Miramontes, was admitted to [facility] Surg Room 309-01 @ 1843. Patient/family oriented to hospital policies and general routines including ID bracelet, bed and alarms, visiting hours, pain management, procedures, bathroom and other care routines, personal items, smoking policy, room service/diet, and visiting hours. Information on how to activate the Rapid Response Team has been discussed. Patient/Family are encouraged to report perceived risks to care and to ask questions if they do not understand what they are told or what they should do.
[2022-09-24] MEDS: ONDANSETRON INJ 4 MG/2 ML VIAL IV PUSH (20:38)
[2022-09-25] VITALS (16 sets, daily range): BP systolic 123–159; BP diastolic 76–104; PULSE 65–96; RESP 15–20; TEMP 36.1–36.8; O2SAT 97–100
[2022-09-25] MEDS: PIPERACILLN/TAZ 3.375GM/NS50ML 3.375 GM/50 ML BAG IVPB ×4 (00:01→17:39)
[2022-09-25] MEDS: HYDROmorphone HCL INJ (*CRX) 1 MG/ML SYR IV PUSH ×6 (02:07→22:55)
[2022-09-25 07:04] LABS: Hemoglobin 11.9 g/dL (12.0-15.0); Mean Corpuscular HGB Conc 33.1 g/dl (32-36); Mean Corpuscular Hemoglobin 29.1 pg (26-34); Mean Platelet Volume 9.7 fl (7.4-10.4); Platelet Count Result 301 k/mm3 (150-375); Red Blood Count 4.09 M/mm3 (4.2-5.4); Red Cell Distribution Width 12.4 % (11.5-14.5); White Blood Count 4.3 K/mm3 (4.5-10.0)
[2022-09-25 07:17] LABS: Alanine Aminotransferase 690 U/L (6-35); Albumin Level 3.7 g/dL (3.5-5.1); Alkaline Phosphatase 273 U/L (38-126); Anion Gap 3 mmol/L (8-16); Aspartate Amino Transferase 515 U/L (14-36); Bilirubin,Total 4.3 mg/dL (0.2-1.3); Blood Urea Nitrogen 3 mg/dL (7-17); Calcium 8.5 mg/dL (8.4-10.2); Carbon Dioxide 24 mmol/L (22-30); Chloride 106 mmol/L (98-107); Estimated CRCL calculation 72 ml/min; Estimated Glomerular Filt Rate > 60; Glucose 104 mg/dL (65-110); Potassium 3.9 mmol/L (3.4-5.0); Sodium 133 mmol/L (137-145)
[2022-09-25] MEDS: KCL 20MEQ/0.9% SOD CHL 1,000 ML 100 ML IV CONT ×2 (10:30→18:27)
[2022-09-25] MEDS: FAMOTIDINE 20 MG/2 ML VIAL IV PUSH ×2 (10:34→20:28)
[2022-09-25] MEDS: CYANOCOBALAMIN 1,000 MCG TABLET 1000 MCG PO (10:34)
[2022-09-25] MEDS: POTASSIUM CHLORIDE 20 MEQ ER TABLET PO (10:35)
[2022-09-25] MEDS: LABETALOL HCL 100 MG TABLET PO ×2 (10:35→20:28)
[2022-09-25] MEDS: ONDANSETRON INJ 4 MG/2 ML VIAL IV PUSH ×2 (10:39→17:38)
--- NOTE | 2022-09-25 12:57 | PM.IMPN ---
Progress Note: A&P Assessment and Plan (1) Abdominal pain: Qualifiers: Abdominal location: generalized Qualified Code(s): R10.84 - Generalized abdominal pain Code(s): R10.9 - Unspecified abdominal pain Status: Acute (2) Transaminitis: Code(s): R74.01 - Elevation of levels of liver transaminase levels Status: Acute (3) Hyperbilirubinemia: Code(s): E80.6 - Other disorders of bilirubin metabolism Status: Acute (4) Acute hypokalemia: Code(s): E87.6 - Hypokalemia Status: Acute (5) Nausea vomiting and diarrhea: Code(s): R11.2 - Nausea with vomiting, unspecified; R19.7 - Diarrhea, unspecified Status: Acute (6) Essential hypertension: Code(s): I10 - Essential (primary) hypertension Status: Acute (7) Choledocholithiasis: Code(s): K80.50 - Calculus of bile duct without cholangitis or cholecystitis without obstruction Status: Acute (8) Acute cholangitis: Code(s): K83.09 - Other cholangitis Status: Acute Plan Intractable abdominal pain Suspecting acute cholangitis. recent cholecystectomy with acute worsening transaminitis hyperbilirubinemia. Patient was placed on empiric antibiotic therapy with Zosyn. MRCP? 09/23/22 13:08 IMPRESSION: 1. 3 mm stone in the common bile duct. Will continue IV fluid hydration. Elevated liver enzymes, total bilirubin, alk-phos without significant improvement P.r.n. antiemetics have been provided. P.r.n. pain medications with morphine. repeat CBC and CMP in a.m.. ERCP per GI today Hyponatremia, hypokalemia Likely secondary to diarrhea Repeated with potassium chloride, start normal saline IV replete accordingly Essential hypertension Will continue patient's home antihypertensives with sips of water. Patient has been admitted as observation status. Subjective Date/time seen: 09/25/22 12:57 Interval history: I saw exam patient today, patient still has intermittent mid abdomen pain, denies nausea vomiting. I reviewed labs and imaging studies Exam Narrative: GENERAL: Pleasant, in no acute distress. Well-nourished. - EYES: EOMI. Anicteric. - HENT: Moist mucous membranes. - LUNGS: Clear to auscultation bilaterally, no wheezing, rhonchi, or rales. - CARDIOVASCULAR: Regular rate and rhythm. No murmur. No JVD. - ABDOMEN: Soft, mid abdominal tender and non-distended. No palpable masses. - EXTREMITIES: No edema. Peripheral pulses 2+. Non-tender. - NEUROLOGIC: No focal neurological deficits. CN II-XII grossly intact. - PSYCHIATRIC: Awake, Alert and oriented x 3. Appropriate mood and affect. - SKIN: No rashes or lesions. Warm. - LYMPH: No cervical lymphadenopathy. Objective Data Vital Signs Vital Signs: Vital Signs - 24 hr 09/24/22 14:00 09/24/22 16:00 09/24/22 20:39 Temperature 97.2 F L Pulse Rate 66 78 66 Respiratory Rate 16 Blood Pressure 132/81 Pulse Oximetry 99 Oxygen Delivery 09/24/22 20:00 09/24/22 21:24 09/24/22 20:00 Temperature 97.7 F Pulse Rate 65 77 Respiratory Rate 20 Blood Pressure 148/71 H Pulse Oximetry 99 99 Oxygen Delivery Room Air 09/25/22 00:00 09/25/22 04:00 09/25/22 06:00 Temperature 97.8 F Pulse Rate 65 67 78 Respiratory Rate 20 Blood Pressure 132/78 Pulse Oximetry 100 Oxygen Delivery 09/25/22 10:35 09/25/22 10:10 Temperature Pulse Rate 96 74 Respiratory Rate Blood Pressure Pulse Oximetry Oxygen Delivery Intake/Output Intake/Output: Intake & Output 09/22/22 09/23/22 09/24/22 09/25/22 23:59 23:59 23:59 23:59 Intake Total 1000 2150 2800 1600 Output Total 0 Balance 1000 2150 2800 1600 Meds/Results Medications: Active Medications Generic Name Dose Route Start Last Admin Trade Name Freq PRN Reason Stop Dose Admin Cyanocobalamin 1,000 mcg 09/23/22 09:00 09/25/22 10:34 Cyanocobalamin 1,000 Mcg Tablet PO 1,000 mcg QAM CONOR Administration F
--- NOTE | 2022-09-25 13:31 | WPDANESEPPF ---
Anes - Initial Pre Proc Eval Procedure: Operation Date: 09/25/22 15:00 Proposed Procedures p Endoscopic Retro Cholangiopancreatogram - Kamran Srivastava MD Date/Time: 09/25/22 13:31 Surgeon: Richa Richmond DO Pre Op Diagnosis: lap rishi 1 week ago - n/v and abdominal pain Patient Data Age: 52 Gender: F Height: 1.55 m Weight: 61.5 kg Last Vital Signs Temp 36.6 C 09/25/22 06:00 Pulse 96 09/25/22 10:35 Resp 20 09/25/22 06:00 BP 132/78 09/25/22 06:00 Pulse Ox 100 09/25/22 06:00 O2 Del Method Room Air 09/24/22 20:00 Allergies Allergy/AdvReac Type Severity Reaction Status Date / Time aspirin Allergy Severe Swelling Verified 09/25/22 14:16 Home Medications Medication Instructions Recorded Confirmed Type eletriptan 40 mg tablet (Relpax) See Rx Instructions PO .COMPLEX 12/23/21 09/22/22 Rx #90 tabs fexofenadine 60 mg-pseudoephedrine 1 tablet PO Q12H 06/22/22 09/22/22 History ER 120 mg tablet,ext.release,12 hr (Lorena-D 12 Hour) mecobalamin (vitamin B12) 1,000 1,000 mcg PO DAILY 06/22/22 09/22/22 History mcg lozenges labetalol 100 mg tablet See Rx Instructions .Route 06/30/22 09/22/22 Rx .COMPLEX #180 tabs amlodipine 5 mg tablet 5 mg PO DAILY #90 tabs 07/24/22 09/22/22 Rx hydrochlorothiazide 50 mg tablet 50 mg PO DAILY #90 tabs 07/24/22 09/22/22 Rx norethindrone (contraceptive) 0.35 0.35 mg PO DAILY 07/24/22 09/22/22 History mg tablet (Jessica) potassium chloride 10 mEq See Rx Instructions .Route 07/24/22 09/22/22 Rx capsule,extended release .COMPLEX #90 caps fluticasone furoate 50 50 mcg inhalation BID 09/15/22 09/22/22 History mcg/actuation blister powder for inhalation Laboratory Tests 09/25/22 06:37 WBC 4.3 L K/mm3 (4.5-10.0) RBC 4.09 L M/mm3 (4.2-5.4) Hgb 11.9 L g/dL (12.0-15.0) Hct 36.0 L % (37.0-47.0) MCV 88.0 fl (80-100) MCH 29.1 pg (26-34) MCHC 33.1 g/dl (32-36) RDW 12.4 % (11.5-14.5) Plt Count 301 k/mm3 (150-375) MPV 9.7 fl (7.4-10.4) Sodium 133 L mmol/L (137-145) Potassium 3.9 mmol/L (3.4-5.0) Chloride 106 mmol/L (98-107) Carbon Dioxide 24 mmol/L (22-30) Anion Gap 3 L mmol/L (8-16) BUN 3 L mg/dL (7-17) Creatinine 0.60 L mg/dL (0.7-1.0) Estim Creat Clear Calc 72 ml/min Estimated GFR > 60 (59 - ) Glucose 104 mg/dL (65-110) Calcium 8.5 mg/dL (8.4-10.2) Total Bilirubin 4.3 H mg/dL (0.2-1.3) AST 515 H U/L (14-36) ALT 690 H U/L (6-35) Alkaline Phosphatase 273 H U/L (38-126) Total Protein 7.0 g/dL (6.3-8.2) Albumin 3.7 g/dL (3.5-5.1) Patient hx anesthesia problems: none Family hx anesthesia problems: none Results Review: All pre-operative results and documents have been reviewed as part of the pre-operative evaluation. [facility], LATER [facility] Past Medical History Medical History Chronic sinusitis Environmental and seasonal allergies Essential hypertension H/O mitral valve prolapse Migraine headache Surgical History Surgical History S/P nasal surgery [place] teeth removed Family History Family History Mother Hypertension Father Patient's father is in good health Alcoholism Sibling Patient's sister is in good health Asthma Other Liver cancer Social History Social History Social History: Code status: Full code Smoking status: Never smoker Second hand tobacco smoke exposure: No Alcohol intake: current Drinks per week: 5 Alcohol use details: She drinks 4-5 glasses of wine a week. Substance use: never Lack of Transportation: No Lack of Food: Never True Current Housing: I Have Housing Concerned About Future Housing: No
[2022-09-25] MEDS: LACTATED RINGERS 1,000 ML 30 ML IV CONT ×2 (14:12→17:03)
[2022-09-25] MEDS: LACTATED RINGERS 1,000 ML 150 ML IV CONT (16:03)
[2022-09-26] MEDS: KCL 20MEQ/0.9% SOD CHL 1,000 ML 100 ML IV CONT ×2 (00:53→10:32)
[2022-09-26] MEDS: PIPERACILLN/TAZ 3.375GM/NS50ML 3.375 GM/50 ML BAG IVPB ×3 (00:53→11:55)
[2022-09-26] MEDS: HYDROmorphone HCL INJ (*CRX) 1 MG/ML SYR IV PUSH ×4 (03:10→14:11)
[2022-09-26] MEDS: ONDANSETRON INJ 4 MG/2 ML VIAL IV PUSH ×3 (03:16→14:11)
[2022-09-26 04:48] VITALS: BP 101/54; PULSE 89; RESP 16; TEMP 37.2; O2SAT 98
[2022-09-26] MEDS: FAMOTIDINE 20 MG/2 ML VIAL IV PUSH (10:34)
--- NOTE | 2022-09-26 11:52 | WPDGIPROGNO ---
Progress Note: A&P Assessment and Plan (1) Choledocholithiasis: Code(s): K80.50 - Calculus of bile duct without cholangitis or cholecystitis without obstruction Status: Acute Assessment and Plan: Retained common bile duct gallstone after recent lap choly. ERCP at our institution unsuccessful yesterday. Patient awaiting transfer to [facility] for follow-up ERCP and hopefully extraction of common bile duct gallstone. (2) Elevated LFTs: Code(s): R79.89 - Other specified abnormal findings of blood chemistry Status: Acute Assessment and Plan: Elevated LFTs consistent with retained common bile duct gallstone. (3) History of cholecystectomy: Code(s): Z90.49 - Acquired absence of other specified parts of digestive tract Status: Chronic Assessment and Plan: Patient had cholecystectomy 1 week ago. Appears to have healed well after surgery. Subjective Date/time seen: 09/26/22 11:52 Interval history: Patient alert. Remains afebrile. Complains of a pain after eating. ERCP yesterday on successful. Review of Systems Review of Systems: Review of systems noncontributory. Exam Narrative: Physical exam reveals patient be alert. Vital signs stable. HEENT exam reveals scleral icterus. Lungs are clear. Heart without murmur. Abdomen soft mild epigastric tenderness. Objective Data Vital Signs Vital Signs: Vital Signs - 24 hr 09/25/22 13:48 09/25/22 14:17 09/25/22 16:07 Temperature 97.2 F L 97 F L 97.1 F L Pulse Rate 83 72 72 Respiratory Rate 16 18 20 Blood Pressure 133/83 123/104 H 125/76 Pulse Oximetry 98 97 100 Oxygen Delivery Room Air Simple Face Mask Oxygen Flow Rate 6 09/25/22 16:17 09/25/22 16:27 09/25/22 16:37 Temperature 97.6 F Pulse Rate 68 72 76 Respiratory Rate 17 19 19 Blood Pressure 154/97 H 155/82 H 156/88 H Pulse Oximetry 100 100 99 Oxygen Delivery Simple Face Mask Simple Face Mask Room Air Oxygen Flow Rate 6 6 09/25/22 16:47 09/25/22 16:57 09/25/22 17:07 Temperature 97.1 F L Pulse Rate 70 71 73 Respiratory Rate 20 18 15 Blood Pressure 159/82 H 151/90 H 157/85 H Pulse Oximetry 99 97 100 Oxygen Delivery Room Air Room Air Room Air Oxygen Flow Rate 09/25/22 12:00 09/25/22 20:00 09/25/22 22:00 Temperature 98.3 F Pulse Rate 77 82 Respiratory Rate 18 Blood Pressure 153/81 H Pulse Oximetry 100 Oxygen Delivery Room Air Oxygen Flow Rate 09/26/22 04:48 09/26/22 04:48 Temperature 98.9 F Pulse Rate 89 Respiratory Rate 16 Blood Pressure 101/54 L Pulse Oximetry 98 Oxygen Delivery Oxygen Flow Rate Intake/Output Intake/Output: Intake & Output 09/23/22 09/24/22 09/25/22 09/26/22 23:59 23:59 23:59 23:59 Intake Total 2150 2800 2700 2175 Output Total 0 Balance 2150 2800 2700 2175 Meds/Results Medications: Active Medications Generic Name Dose Route Start Last Admin Trade Name Freq PRN Reason Stop Dose Admin Cyanocobalamin 1,000 mcg 09/23/22 09:00 09/26/22 09:56 Cyanocobalamin 1,000 Mcg Tablet PO Not Given QAM CONOR Famotidine 20 mg 09/24/22 09:00 09/26/22 10:34 Famotidine 20 Mg/2 Ml Vial IV PUSH 20 mg Q12HR CONOR Administration Fentanyl Citrate 25 mcg 09/25/22 13:32 Fentanyl Citrate Inj (*Crx) 100 Mcg/2 Ml Vial IV PUSH Q2M PRN Pain Hydromorphone HCl 1 mg 09/23/22 21:24 09/26/22 10:38 Hydromorphone Hcl Inj (*Crx) 1 Mg/Ml Syr IV PUSH 1 mg Q3H PRN Administration Pain Rated 7-10 Piperacillin/Tazobactam/Dextrose 3.375 gm in 50 mls @ 100 mls/hr 09/23/22 06:00 09/26/22 06:23 Zosyn 3.375 Gm/Ns 50 Ml IVPB Infused Q6H CONOR Infusion Potassium Chloride/Sodium Chloride 1,000 mls @ 100 mls/hr 09/24/22 10:15 09/26/22 10:32 Kcl 20 Meq/Ns IV CONT 100 mls/hr .Q10H CONOR Administration Lactated Ringer's 1,000 mls @ 30 mls/hr 09/25/22 13:35 09/25/22 16:03 Lr - Lactated Ringers Iv IV CONT 150 m
--- NOTE | 2022-09-26 13:09 | WPDANESPN ---
Anes - Prog Note Post-Op Date/Time: 09/26/22 13:09 Vital Signs: Last Vital Signs Temp 37.2 C 09/26/22 04:48 Pulse 89 09/26/22 04:48 Resp 16 09/26/22 04:48 BP 101/54 L 09/26/22 04:48 Pulse Ox 98 09/26/22 04:48 O2 Del Method Room Air 09/25/22 20:00 O2 Flow Rate 6 09/25/22 16:27 Pain Score (VAS): 0 I/O: Intake & Output 09/25/22 09/26/22 09/26/22 23:59 07:59 15:59 Intake Total 1050 1175 1000 Balance 1050 1175 1000 Laboratory Tests 09/25/22 06:37 09/25/22 06:37 Patient Feedback: Patient satisfied with anesthetic care.
--- NOTE | 2022-09-26 13:34 | PM.IMPN ---
Progress Note: A&P Assessment and Plan (1) Abdominal pain: Qualifiers: Abdominal location: generalized Qualified Code(s): R10.84 - Generalized abdominal pain Code(s): R10.9 - Unspecified abdominal pain Status: Acute (2) Transaminitis: Code(s): R74.01 - Elevation of levels of liver transaminase levels Status: Acute (3) Hyperbilirubinemia: Code(s): E80.6 - Other disorders of bilirubin metabolism Status: Acute (4) Acute hypokalemia: Code(s): E87.6 - Hypokalemia Status: Acute (5) Nausea vomiting and diarrhea: Code(s): R11.2 - Nausea with vomiting, unspecified; R19.7 - Diarrhea, unspecified Status: Acute (6) Essential hypertension: Code(s): I10 - Essential (primary) hypertension Status: Acute (7) Choledocholithiasis: Code(s): K80.50 - Calculus of bile duct without cholangitis or cholecystitis without obstruction Status: Acute (8) Acute cholangitis: Code(s): K83.09 - Other cholangitis Status: Acute Plan Intractable abdominal pain Suspecting acute cholangitis. recent cholecystectomy with acute worsening transaminitis hyperbilirubinemia. Patient was placed on empiric antibiotic therapy with Zosyn. MRCP? 09/23/22 13:08 IMPRESSION: 1. 3 mm stone in the common bile duct. Will continue IV fluid hydration. Elevated liver enzymes, total bilirubin, alk-phos without significant improvement P.r.n. antiemetics have been provided. P.r.n. pain medications with morphine. repeat CBC and CMP in a.m.. SP ERCP pt will need to be transfered to [facility] for follow-up ERCP and hopefully extraction of common bile duct gallstone. Hyponatremia, hypokalemia Resolved Essential hypertension BP is stable Subjective Date/time seen: 09/26/22 13:34 Interval history: Pt is awaiting transfer to [facility] for higher level of care and biliary services Review of Systems Review of Systems: Ongoing RUQ pains Exam Narrative: GENERAL: Pleasant, in no acute distress. Well-nourished. - EYES: EOMI. Anicteric. - HENT: Moist mucous membranes. - LUNGS: Clear to auscultation bilaterally, no wheezing, rhonchi, or rales. - CARDIOVASCULAR: Regular rate and rhythm. No murmur. No JVD. - ABDOMEN: Soft, mid abdominal tender and non-distended. No palpable masses. - EXTREMITIES: No edema. Peripheral pulses 2+. Non-tender. - NEUROLOGIC: No focal neurological deficits. CN II-XII grossly intact. - PSYCHIATRIC: Awake, Alert and oriented x 3. Appropriate mood and affect. - SKIN: No rashes or lesions. Warm. - LYMPH: No cervical lymphadenopathy. Objective Data Vital Signs Vital Signs: Vital Signs - 24 hr 09/25/22 13:48 09/25/22 14:17 09/25/22 16:07 Temperature 36.2 C L 36.1 C L 36.2 C L Pulse Rate 83 72 72 Respiratory Rate 16 18 20 Blood Pressure 133/83 123/104 H 125/76 Pulse Oximetry 98 97 100 Oxygen Delivery Room Air Simple Face Mask Oxygen Flow Rate 6 09/25/22 16:17 09/25/22 16:27 09/25/22 16:37 Temperature 36.4 C Pulse Rate 68 72 76 Respiratory Rate 17 19 19 Blood Pressure 154/97 H 155/82 H 156/88 H Pulse Oximetry 100 100 99 Oxygen Delivery Simple Face Mask Simple Face Mask Room Air Oxygen Flow Rate 6 6 09/25/22 16:47 09/25/22 16:57 09/25/22 17:07 Temperature 36.2 C L Pulse Rate 70 71 73 Respiratory Rate 20 18 15 Blood Pressure 159/82 H 151/90 H 157/85 H Pulse Oximetry 99 97 100 Oxygen Delivery Room Air Room Air Room Air Oxygen Flow Rate 09/25/22 20:00 09/25/22 22:00 09/26/22 04:48 Temperature 36.8 C Pulse Rate 82 89 Respiratory Rate 18 16 Blood Pressure 153/81 H 101/54 L Pulse Oximetry 100 98 Oxygen Delivery Room Air Oxygen Flow Rate 09/26/22 04:48 Temperature 37.2 C Pulse Rate Respiratory Rate Blood Pressure Pulse Oximetry Oxygen Delivery Oxygen Flow Rate Intake/Output Intake/Output: Intake & Output 09/23/22 09/24/22 09/25/22 09/26/22
[2022-09-26 14:00] VITALS: BP 154/83; PULSE 71; RESP 18; TEMP 36.2; O2SAT 99
--- NOTE | 2022-09-26 14:21 | PC.NURSE ---
Pt transferring to [facility] via [facility] ALS truck for higher level of care. Pt was supposed to transfer out at 0715. Pt maintained on NSc20K @100 mls/hr, zosyn at 1200, with zofran 4mg and dilaudid 1mg IVPs until truck arrived. Pt transported with 20 RH SL. 1mg dilaudid and 4mg zofran given prior to discharge. Pt home medications returned to .
--- NOTE | 2022-10-11 09:50 | PM.DS ---
DS: Admitting Diagnosis Discharge Date 09/26/22 Admitting Diagnosis Abdominal pain and vomiting DS: Discharge Diagnosis Discharge Diagnosis (1) Abdominal pain: Qualifiers: Abdominal location: generalized Qualified Code(s): R10.84 - Generalized abdominal pain Code(s): R10.9 - Unspecified abdominal pain Status: Acute Assessment and Plan: Intractable abdominal pain Suspecting acute cholangitis. recent cholecystectomy with acute worsening transaminitis hyperbilirubinemia. Patient was placed on empiric antibiotic therapy with Zosyn. MRCP? 09/23/22 13:08 IMPRESSION: 1. 3 mm stone in the common bile duct. Will continue IV fluid hydration. Elevated liver enzymes, total bilirubin, alk-phos without significant improvement P.r.n. antiemetics have been provided. P.r.n. pain medications with morphine. repeat CBC and CMP in a.m.. SP ERCP pt will need to be transfered to [facility] for follow-up ERCP and hopefully extraction of common bile duct gallstone. Hyponatremia, hypokalemia Resolved Essential hypertension BP is stable (2) Transaminitis: Code(s): R74.01 - Elevation of levels of liver transaminase levels Status: Acute (3) Hyperbilirubinemia: Code(s): E80.6 - Other disorders of bilirubin metabolism Status: Acute (4) Acute hypokalemia: Code(s): E87.6 - Hypokalemia Status: Acute (5) Nausea vomiting and diarrhea: Code(s): R11.2 - Nausea with vomiting, unspecified; R19.7 - Diarrhea, unspecified Status: Acute (6) Essential hypertension: Code(s): I10 - Essential (primary) hypertension Status: Acute (7) Choledocholithiasis: Code(s): K80.50 - Calculus of bile duct without cholangitis or cholecystitis without obstruction Status: Acute (8) Acute cholangitis: Code(s): K83.09 - Other cholangitis Status: Acute DS: Summary Hospital Course Hospital Course: Intractable abdominal pain Suspecting acute cholangitis. recent cholecystectomy with acute worsening transaminitis hyperbilirubinemia. Patient was placed on empiric antibiotic therapy with Zosyn. MRCP? 09/23/22 13:08 IMPRESSION: 1. 3 mm stone in the common bile duct. Will continue IV fluid hydration. Elevated liver enzymes, total bilirubin, alk-phos without significant improvement P.r.n. antiemetics have been provided. P.r.n. pain medications with morphine. repeat CBC and CMP in a... SP ERCP pt will need to be transferred to [facility] for follow-up ERCP and hopefully extraction of common bile duct gallstone. Time Spent with Patient Time attestation: Total time spent providing and/or coordinating discharge services: 40 minutes Exam Narrative: GENERAL: Pleasant, in no acute distress. Well-nourished. - EYES: EOMI. Anicteric. - HENT: Moist mucous membranes. - LUNGS: Clear to auscultation bilaterally, no wheezing, rhonchi, or rales. - CARDIOVASCULAR: Regular rate and rhythm. No murmur. No JVD. - ABDOMEN: Soft, mid abdominal tender and non-distended. No palpable masses. - EXTREMITIES: No edema. Peripheral pulses 2+. Non-tender. - NEUROLOGIC: No focal neurological deficits. CN II-XII grossly intact. - PSYCHIATRIC: Awake, Alert and oriented x 3. Appropriate mood and affect. - SKIN: No rashes or lesions. Warm. - LYMPH: No cervical lymphadenopathy. Discharge Plan Discharge Attending physician on discharge: Judith Leon Consulting providers: Carolyn Davila; Juan Ramon Schneider; Kamran Srivastava; Judith Leon; Glenroy Rucker; Uli Knight V. Discharging Clinician: Judith Leon Anticipated Discharge Date/Time: 09/26/22 09:50 Patient Disposition: Acute Care Hospital Activity: as tolerated Diet: as tolerated Discharge Medications: Discontinued fexofenadine-pseudoephedrine [Lorena-D 12 Hour] 60-120 mg tablet extended release 12 hr 1 tablet PO Q12H Rx Instructions: says takes once a day. mecobalam
--- NOTE | 2022-10-11 10:17 | PM.TDS ---
Transfer Discharge Sum: Prov Provider Date of admission: 09/24/22 13:07 Primary care physician: More Betancourt MD Admitting clinician: Richa Richmond DO Consults: 09/22/22 22:13 Consult to Physician Routine Comment: Consulting Provider: Juan Ramon Schneider Reason for consultation: s/p cholecystectomy, hyperbilirubinemia, transaminitis, abdominal pain Has provider been notified: Yes 09/23/22 Consult to Physician Routine Comment: Spoke to on floor 8. @ 67--/us Consulting Provider: Kamran Srivastava freight caller/MD group to consult: Gastroenterology Reason for consultation: Hyperbilirubinemia status post laparoscopic cholecystectomy Has provider been notified: Yes DS: Admitting Diagnosis Discharge Date 09/26/22 Admitting Diagnosis Abdominal pain and vomiting DS: Discharge Diagnosis Discharge Diagnosis (1) Encounter for surgical aftercare following surgery on the digestive system: Code(s): Z48.815 - Encounter for surgical aftercare following surgery on the digestive system Status: Acute Assessment and Plan: Intractable abdominal pain Suspecting acute cholangitis. ?recent cholecystectomy with acute worsening transaminitis hyperbilirubinemia. Patient was placed on empiric antibiotic therapy with Zosyn. MRCP? 09/23/22 13:08?IMPRESSION: 1. 3 mm stone in the common bile duct. Will continue IV fluid hydration. Elevated liver enzymes, total bilirubin, alk-phos without significant improvement P.r.n. antiemetics have been provided.? P.r.n. pain medications with morphine. repeat CBC and CMP in a.m..? SP ERCP pt will need to be transferred to [facility] for follow-up ERCP and hopefully extraction of common bile duct gallstone. Hyponatremia, hypokalemia Resolved Essential hypertension BP is stable (2) Acute cholangitis: Code(s): K83.09 - Other cholangitis Status: Acute (3) Choledocholithiasis: Code(s): K80.50 - Calculus of bile duct without cholangitis or cholecystitis without obstruction Status: Acute (4) History of cholecystectomy: Code(s): Z90.49 - Acquired absence of other specified parts of digestive tract Status: Chronic (5) Elevated LFTs: Code(s): R79.89 - Other specified abnormal findings of blood chemistry Status: Acute (6) Nausea vomiting and diarrhea: Code(s): R11.2 - Nausea with vomiting, unspecified; R19.7 - Diarrhea, unspecified Status: Acute (7) Abdominal pain: Qualifiers: Abdominal location: generalized Qualified Code(s): R10.84 - Generalized abdominal pain Code(s): R10.9 - Unspecified abdominal pain Status: Acute (8) Transaminitis: Code(s): R74.01 - Elevation of levels of liver transaminase levels Status: Acute (9) Hyperbilirubinemia: Code(s): E80.6 - Other disorders of bilirubin metabolism Status: Acute (10) Acute hypokalemia: Code(s): E87.6 - Hypokalemia Status: Acute (11) Essential hypertension: Code(s): I10 - Essential (primary) hypertension Status: Acute Transfer Discharge Sum: Med Medications Active and Home Medications: Home Medications eletriptan 40 mg tablet (Relpax) See Rx Instructions PO .COMPLEX #90 tabs 12/23/21 [Rx Confirmed 10/06/22] fexofenadine 60 mg-pseudoephedrine ER 120 mg tablet,ext.release,12 hr (Lorena-D 12 Hour) 1 tablet PO Q12H 06/22/22 [History Confirmed 10/06/22] mecobalamin (vitamin B12) 1,000 mcg lozenges 1,000 mcg PO DAILY 06/22/22 [History Confirmed 10/06/22] labetalol 100 mg tablet See Rx Instructions .Route .COMPLEX #180 tabs 06/30/22 [Rx Confirmed 10/06/22] amlodipine 5 mg tablet 5 mg PO DAILY #90 tabs 07/24/22 [Rx Confirmed 10/06/22] hydrochlorothiazide 50 mg tablet 50 mg PO DAILY #90 tabs 07/24/22 [Rx Confirmed 10/06/22] potassium chloride 10 mEq capsule,extended release See Rx Instructions .Route .COMPLEX #90 caps 07/24/22 [Rx Confirmed 10/06/22] fluticasone furoate 50 mcg/ac
== END 2022-09-26 14:20 | disposition short-term general hospital (02) | DRG 445 ==
LOC: ANHED 20:29 → ANH3MEDSUR 22:55
PROVIDERS: Emergency Medicine; Internal Medicine Gastroenterology; Surgery; Admitting Provider Internal Medicine; Emergency Provider Physician Assistant; PCP Family Medicine; Visit Provider Hospitalist
PROC: 0FJB8ZZ Inspection of Hepatobiliary Duct, Via Natural or Artificial Opening Endoscopic (ICD-10-PCS; CPT 43260; principal; 2022-09-25 15:00)
DX: K91.5 Postcholecystectomy syndrome (principal); K80.32 Calculus of bile duct with acute cholangitis without obstruction; E87.1 Hypo-osmolality and hyponatremia; Z90.49 Acquired absence of other specified parts of digestive tract; E87.6 Hypokalemia; I10 Essential (primary) hypertension
CPT/HCPCS: 36415; 74177; 74183; 74329; 76376; 80053; 80076; 81001; 81025; 82247; 82248; 83690; 83735; 85025; 85027; 85055; 85610; 87040; 96361; 96365; 96367; 96374; 96375; 96376; 99285; A9270; A9577; C9113; G0378; J0330; J1170; J2270; J2405; J2543; J2704; J3480; J7030; J7040; J7120; Q9966; Q9967

== ENCOUNTER 2023-01-02 11:18 | Outpatient (CLI) | payer OTHER, SELFPAY ==
--- NOTE | ~2023-01-02 | US_ITS ---
US breast RT limited DATE: 01/02/2023 12:21 INDICATION: Six-month follow-up of 9 x 4 mm oval circumscribed parallel hypoechoic mass with no poste rior features or internal vascularity at 12:00 location near nipple noted on 06/30/2022 ultrasound exa mination TECHNIQUE: Real-time imaging targeted at 12:00 subareolar and periareolar area COMPARISON: 06/30/2022 bilateral Limited breast ultrasound 06/30/2022 bilateral diagnostic mammogram FINDINGS: The previously reported 9 x 4 mm hypoechoic mass at 12:00 near the nipple is no longer iden tified. IMPRESSION: BI-RADS Category 2: Benign Examinations: Routine annual mammographic screening Reviewed, dictated and finalized at [facility]. Reviewed, dictated and finalized at location [facility]. ANALYST REPORT WRITER
== END 2023-01-02 11:19 | disposition home or self-care (01) ==
PROVIDERS: PCP Family Medicine; Visit Provider Obstetrics & Gynecology
DX: R92.8 Other abnormal and inconclusive findings on diagnostic imaging of breast (principal)
CPT/HCPCS: 76642

== ENCOUNTER 2023-09-07 12:32 | Outpatient (CLI) | payer OTHER, SELFPAY ==
--- NOTE | ~2023-09-07 | MR_ITS ---
EXAMINATION: MR brain/brain stem wo con DATE: 09/07/2023 13:12 INDICATION: Migraine, unspecified, not intractable. TECHNIQUE: Magnetic resonance imaging (MRI) of the brain and brainstem was performed without intraven ous contrast. COMPARISON: Brain MRI 01/08/2007 FINDINGS: There are scattered areas of nonspecific increased T2-weighted signal intensity in the cere bral white matter. There is no intracranial hemorrhage, acute infarction, or abnormal intracranial ma ss lesion. The ventricles are normal in size. There is mild mucosal thickening in the paranasal sinus es. The orbits are normal. There are trace bilateral mastoid effusions. IMPRESSION: 1. Worsened mild nonspecific cerebral white matter disease, which likely represents chronic small ves daniel ischemic disease. Reviewed, dictated and finalized at location [facility]. IMPRESSION: 1. Worsened mild nonspecific cerebral white matter disease, which likely repres ents chronic small vessel ischemic disease.
== END 2023-09-07 12:33 | disposition home or self-care (01) ==
PROVIDERS: PCP Family Medicine; Visit Provider Physician Assistant Medical
DX: G43.909 Migraine, unspecified, not intractable, without status migrainosus (principal); R90.82 White matter disease, unspecified
CPT/HCPCS: 70551

== ENCOUNTER 2023-10-16 12:45 | Outpatient (CLI) | payer OTHER, SELFPAY ==
--- NOTE | ~2023-10-16 | MM_ITS ---
EXAMINATION: MM screening jcarlos BI w neymar HISTORY: Screening mammogram TECHNIQUE: Craniocaudal and mediolateral oblique 3-D tomosynthesis images were obtained and synthetic 2-D images were generated. CAD analysis was submitted and interpreted. COMPARISON: 06/30/2022 BREAST PARENCHYMAL COMPOSITION:Dense: The breasts are heterogeneously dense, which may obscure small masses. FINDINGS: Bilateral breast masses seen on prior exam are decreased in size, compatible with waning cy sts. No suspicious mass, calcification, or architectural distortion are identified in either breast t o suggest malignancy. There has been no suspicious interval change. IMPRESSION: No mammographic evidence of malignancy. Recommend routine screening mammography in one year. BI-RADS Category 2: Benign finding(s). Reviewed, dictated and finalized at location .
== END 2023-10-16 12:46 | disposition home or self-care (01) ==
LOC: CHSIMG 12:46
PROVIDERS: PCP Family Medicine; Visit Provider Obstetrics & Gynecology
DX: Z12.31 Encounter for screening mammogram for malignant neoplasm of breast (principal)
CPT/HCPCS: 77063; 77067

== ENCOUNTER 2023-11-17 07:05 | Outpatient (CLI) | payer OTHER, SELFPAY ==
[2023-11-21 00:53] LABS: Progesterone 0.6 ng/mL
[2023-11-23 15:52] LABS: Testosterone Free 2 pg/mL (0.1-6.4); Testosterone Total 35 ng/dL (2-45)
[2023-11-23 17:23] LABS: Estrogen 1431 pg/mL
== END 2023-11-17 07:06 | disposition home or self-care (01) ==
LOC: CHSLAB 07:06
PROVIDERS: PCP Family Medicine; Visit Provider Obstetrics & Gynecology
DX: N95.1 Menopausal and female climacteric states (principal)
CPT/HCPCS: 36415; 82672; 83001; 84144; 84402; 84403

== ENCOUNTER 2023-12-06 15:52 | Outpatient (CLI) | payer OTHER, SELFPAY | END 2023-12-06 15:53 | disposition home or self-care (01) | LOC: ANHLAB 15:54 | PROVIDERS: PCP Family Medicine; Visit Provider Obstetrics & Gynecology | DX: N95.1 Menopausal and female climacteric states (principal) | CPT/HCPCS: 36415; 84443 ==

== ENCOUNTER 2024-11-30 15:21 | Emergency (ER) | payer OTHER, SELFPAY ==
[2024-11-30 15:37] VITALS: BP 124/90; PULSE 67; RESP 20; O2SAT 99
--- NOTE | 2024-11-30 15:37 | ED.GENADULT ---
HPI - General Adult General Chief complaint: Dizziness Stated complaint: blood pressure check Time Seen by Provider: 11/30/24 15:36 Source: patient and family Mode of arrival: ambulatory Limitations: no limitations History of Present Illness HPI narrative: 54 years old white female came to the ED complaining of elevated blood pressure noticed yesterday, ice reading was 170/98. Patient currently on labetalol 100 mg b.i.d., amlodipine 5 mg once a day, hydrochlorothiazide 50 mg once a day. Patient report quite a bit of stress and restlessness over the last 2 days because of too much work at home. Currently patient is asymptomatic. She denies any fever, chills, nausea, vomiting, chest pain, shortness of breath, headache or back pain or abdominal pain. Related Data Allergies Allergy/AdvReac Type Severity Reaction Status Date / Time aspirin Allergy Severe Swelling Verified 11/30/24 15:38 Review of Systems Review of Systems: All systems reviewed & are unremarkable except as noted in HPI and below PMFSH Past Medical History Medical History Gallstones Cholecystectomy planned Chronic sinusitis Environmental and seasonal allergies H/O mitral valve prolapse Essential hypertension Migraine headache Surgical History Surgical History [place] teeth removed S/P nasal surgery Family History Family History Mother Hypertension Father Patient's father is in good health Alcoholism Sibling Patient's sister is in good health Asthma Other Liver cancer Social History Social History Social History: Code status: Full code Smoking status: Never smoker Second hand tobacco smoke exposure: No Alcohol intake: current Drinks per week: 5 Alcohol use details: She drinks 4-5 glasses of wine a week. Substance use: never Lack of Transportation: No Lack of Food: Never True Current Housing: I Have Housing Concerned About Future Housing: No Difficulty Paying Gas/Electric Bills: No Difficulty Paying for Meds: No Currently Unemployed: No Education: Master's Degree or Higher Difficulty w/ Childcare or Family Care: No Living arrangements: with family Additional living arrangements comments: She is living with her life partner. 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 Gender identity (if verbalized by the patient): Female Spiritual care concerns: No Agree to blood products: Yes Exam Narrative: General appearance: Well-developed, well-nourished Skin: Normal color Head: Normocephalic, nontraumatic Eyes: Clear conjunctiva ENT: Oropharynx normal, ears normal, nose normal Neck: Supple, nontender Chest and respiratory: Airway patent, no respiratory distress, no accessory muscle use Heart: Regular rate/rhythm Abdomen: Soft, nontender, no organomegaly, quiet bowel sounds Vascular: Normal peripheral pulses, normal capillary refill. 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 Physical examination is unremarkable Differential diagnosis include anxiety, stress, lack of sleep could be the underlying cause of patient elevated blood pressure at home. Blood workup or imaging are required at this time. Discharge the pt was discharged to home.the pt,s condition upon discharge was fair,education was provided to the pt in reference to the final impression,discharge study results,treatment,prognosis and need for follow up . Discharge Plan Discharge Clinical Impression: Hypertension, uncontrolled Patient Disposition: Home Condition: Stable Instructions: Hypertension (ED) Additional Instructions: Return if symptoms are worsening , call your family physician for appointment, take Tylenol as as needed for aches and pain, continue home medications. Patient Language: Croatian Prescriptions: No Action venlafaxine 37.5 mg tablet 37.5 mg PO DAILY Qty: 30 1RF estradiol 1 mg tablet 1 mg PO DAILY Qty: 90 0RF calcium acetate 667 mg tablet 667 mg PO ONCE progesterone micronized 200 mg capsule 200 mg PO QPM Qty: 90 2RF fexofenadine-pseudoephedrine [Lorena-D 12 Hour] 60-120 mg tablet extended release 12 hr 1 tablet PO Q12H Rx Instructions: says takes once a day. amlodipine 5 mg tablet 5 mg PO DAILY Qty: 90 1RF eletriptan [Relpax] 40 mg tablet See Rx Instructions PO .COMPLEX Qty: 90 0RF Rx Instructions: take 1 tab at onset of headache; if no relief, may repeat 1 tab after at least 2 hrs; max = 2 tabs/24 hrs PO labetalol 100 mg tablet See Rx Instructions .ROUTE .COMPLEX Qty: 180 2RF Dose Instruction: TAKE 1 TABLET BY MOUTH EVERY 12 HOURS Rx Instructions: TAKE 1 TABLET BY MOUTH EVERY 12 HOURS hydrochlorothiazide 50 mg tablet 50 mg PO DAILY Qty: 90 3RF potassium chloride 10 mEq capsule, extended release 10 meq PO .COMPLEX Qty: 90 3RF Rx Instructions: 10 mEq orally 3 times weekly, on Sunday, Sunday and Sunday; (DME) covid vaccine See Rx Instructions .Route .MEDSUPPLY Qty: 1 0RF Rx Instructions: Inject as directed Follow-up/Referrals: More Betancourt MD [Primary Care Provider, Family Practice] Stand Alone Forms: Work/School Release IP
--- NOTE | 2024-11-30 15:41 | PC.NURSE ---
On 11/30/24, the student, [AN GARCIA ], provided care and completed [facility] documentation on this patient. I have reviewed the student's documentation and agree with the findings.
== END 2024-11-30 15:54 | disposition home or self-care (01) ==
LOC: CHSED 15:59
PROVIDERS: Emergency Provider Emergency Medicine; PCP Family Medicine
DX: I10 Essential (primary) hypertension (principal); Z79.899 Other long term (current) drug therapy
CPT/HCPCS: 99281

== ENCOUNTER 2025-01-08 07:12 | Outpatient (CLI) | payer OTHER, SELFPAY ==
--- NOTE | ~2025-01-08 | MM_ITS ---
EXAMINATION: MM screening jcarlos BI w neymar HISTORY: Screening. TECHNIQUE: Craniocaudal and mediolateral oblique 3-D tomosynthesis images were obtained and synthetic 2-D images were generated. CAD analysis was submitted and interpreted. COMPARISON: 2022 BREAST PARENCHYMAL COMPOSITION: Dense: The breasts are heterogeneously dense FINDINGS: There are findings consistent with the known breast cysts. No suspicious masses are seen. There are no suspicious calcifications. No unexplained architectural distortion is seen. There are no skin or nipple abnormalities identified. There is no adenopathy seen on the images submitted. IMPRESSION: No mammographic evidence to suggest malignancy is seen. The patient may return to screening mammography as per ACR guidelines. BI-RADS 2 - Benign. Reviewed, dictated and finalized at location C. SSING TOOLSETTER
--- OUTSIDE RECORDS SUMMARY | 2025-01-08 07:14 | XMS_ITS | Clinical Summary ---
Author Organization [facility] Address [address] [place] [address] Care Team Providers Care Title 1 Tutor Name Role Phone Unavailable Primary Care Provider Unavailabl e Source Comments [facility],non-owned Affiliates and Associated Physician Practices is amultiple site organization consisting of ambulatory clinics and hospital sitesin [place], [place], [place] and [place]. This disclosure is being madepursuant to the Care Everywhere program and may not contain all information available regarding this patient. Last updated 17.[facility] Active Problems Problem Noted Date Diagnosed Date Choledocholithiasis 09/25/2022 Social History Tobacco Use Types Packs/Day Years Used Date Smoking Tobacco: Never Assessed Comments Unknown Sex and Gender Information Value Date Recorded Sex Assigned at Not on file Legal Sex Female 2:29 PM CDT Gender Identity Not on file Sexual Orientation Not on file Plan of Treatment Health Maintenance Due Date Last Done Comments COLOGUARD (AGES 45-75) - COL ON CA SCREENING 1972 COLON MONITORING 1972 COLONOSCOPY - COLON CA SCREENING 1972 CT COLONOGRAPHY - COLON CA SCREENING 1972 Colorectal Cancer Screening 1972 FIT - COLON CA SCREENING 1972 FLEX SIG - COLON CA SCREENING 1972 LIPID TESTING 1972 MAMMOGRAM 1972 HIV SCREENING 02/10/1987 HEPATITIS C SCREENING 02/06/1990 DTAP/TDAP/TD VACCINES (1 - Tdap) 02/10/1991 HEPATITIS B VACCINE (1 of 3 - 19+ 3-dose series) 02/10/1991 Cervical Cancer Screening 02/10/1993 PAP SMEAR 02/10/1993 PAP with HPV 02/10/2002 PNEUMOCOCCAL VACCINE 50+ (1 of 1 - PCV) 02/10/2022 ZOSTER VACCINE (1 of 2) 02/10/2022 DEPRESSION SCREENING 02/06/2024 COVID-19 VACCINE ( - 2024-2 6 season) 2024 INFLUENZA VACCINE (#1) 2024 HIB VACCINE Aged Out No longer eligi ble based on patient's age to complete this topic HPV VACCINE Aged Out No longer eligi ble based on patient's age to complete this topic MENINGOCOCCAL (Group B) VACC INE SHARED DECISION-MAKING Aged Out No longer eligibl e based on patient's age to complete this topic MENINGOCOCCAL GROUPS A/C/Y/W VACCINE Aged Out No longer eligible b ased on patient's age to complete this topic Insurance [employer] Member Subscriber Plan / Payer (Ef fective for All Dates) Name:Little Rand Relation to Subscriber:Self Name:Little Rand Payer ID:Not on file Group ID:[id number] Type:O Address: [place] [phone] [employer] HE[employer]LINK HE[employer]
--- OUTSIDE RECORDS SUMMARY | 2025-01-08 07:15 | XMS_ITS | Clinical Summary ---
Author Organization [facility] Address [address] [place] [address] Phone Care Team Providers Care Flamer After Lasting Name Role Phone Unavailable Primary Care Provider Unavailabl e Social History Tobacco Use Types Packs/Day Years Used Date Smoking Tobacco: Never Assessed Comments Unknown Sex and Gender Information Value Date Recorded Sex Assigned at Not on file Legal Sex Female 1:30 PM UM RN Gender Identity Not on file Sexual Orientation Not on file Plan of Treatment Health Maintenance Due Date Last Done Comments DTAP/TDAP/TD VACCINES (1 - Tdap) 02/10/1991 HEPATITIS B VACCINES (1 of 3 - 19+ 3-dose series) 07/1991 HPV/Cotest (21-29) 02/10/1993 CERVICAL CANCER SCREENING 02/10/2002 HPV/Cotest (30-65) 02/10/2002 PAP SMEAR 02/10/2002 BREAST CANCER SCREENING 2012 COLORECTAL SCREENING 02/10/2017 Colorectal Cancer Screening 02/10/2017 FIT-DNA Q 3 years 02/10/2017 FIT/FOBT Q 1 year 02/10/2017 Flex Sig/CT Colonography Q 5 years 02/10/2017 ZOSTER VACCINE (1 of 2) 02/10/2022 INFLUENZA VACCINE (#1) 2024 11/08/2021
--- OUTSIDE RECORDS SUMMARY | 2025-01-08 07:15 | XMS_ITS | Patient Health Record ---
Author Organization [facility] Address [address] [place] [address] Care Team Providers Care Hydrotreater Operator Name Role Phone Serafin VERDIN, More Primary Care Provider Unavailabl meche DOTY MD, LEANDRA Unavailable Jennifer VERDIN, Skip Unavailable Unavailable Reason For Referral No Information Problems Problem Type SNOMED Code ICD Code Onset Dates Problem Status W/U Status Risk Notes Problem Obstruction of bile duct (06496767) Obstruction of bile duct (K83.1) Active confirmed Plan Of Treatment Pending Test Test Name Order Date Endoscopic Retrograde Cholangiopancreato graphy (ERCP) 10/11/2022 MRI : Abdomen with and without Contrast 09/07/2023 Insurance Providers Payer Name Payer Address Payer Phone Subscriber Number Group Number Insured Name Patient Relationship to Insured Coverage Start Date Coverage End Date [employer] [address] [place], [place] [id number] Self - patient is the insured
== END 2025-01-08 07:13 | disposition home or self-care (01) ==
PROVIDERS: PCP Family Medicine; Visit Provider Obstetrics & Gynecology
DX: Z12.31 Encounter for screening mammogram for malignant neoplasm of breast (principal)
CPT/HCPCS: 77063; 77067